=== PATIENT | female | born 1945 | race Caucasian/White ===

== ENCOUNTER → 2017-08-06 11:54 | Outpatient (CLI) | payer MEDICARE, OTHER, SELFPAY ==
[2017-08-08 18:13] LABS: Fecal Immunochemical Test NOT DETECTED
== END ==
PROVIDERS: Family Provider Physician Assistant; PCP Physician Assistant; Visit Provider Physician Assistant
DX: Z12.11 Encounter for screening for malignant neoplasm of colon (principal)
CPT/HCPCS: 82274

== ENCOUNTER → 2019-01-26 19:04 | Outpatient (ROUT) | payer MEDICARE, OTHER, SELFPAY ==
[2019-01-29 16:00] LABS: Fecal Immunochemical Test NOT DETECTED (NOT DETECTED)
== END ==
PROVIDERS: Family Provider Physician Assistant; PCP Physician Assistant; Visit Provider Physician Assistant
DX: Z12.11 Encounter for screening for malignant neoplasm of colon (principal)
CPT/HCPCS: 82274

== ENCOUNTER 2019-05-11 15:31 | Emergency (ER) | payer MEDICARE, OTHER, SELFPAY ==
[2019-05-11 15:54] VITALS: BP 187/77; PULSE 60; RESP 18; TEMP 36.1; O2SAT 100; BMI 29.9
[2019-05-11 16:24] LABS: Add Manual Diff / Slide Review NO; Basophils Absolute Auto 0 /uL (0-100); Basophils Percent Auto 0.3 % (0-2); Eosinophils Absolute Auto 200 /uL (0-450); Eosinophils Percent Auto 1.9 % (2-4); Hematocrit 36.5 % (36-46); Hemoglobin 12.6 g/dL (12.0-16.0); Lymphocytes Absolute Auto 1600 /uL (1100-4500); Lymphocytes Percent Auto 18.1 % (25-40); Mean Corpuscular HGB Conc 34.7 % (30-36); Mean Corpuscular Hemoglobin 33.8 PG (26-34); Mean Corpuscular Volume 97.4 fL (80-100); Monocytes Absolute Auto 800 /uL (0-900); Monocytes Percent Auto 8.7 % (3-14); Neutrophils Absolute Auto 6500 /uL (1500-7000); Platelet Count 240 X10^3/uL (150-400); Red Blood Cell Count 3.74 X10^6/uL (4.0-5.2); Red Cell Distribution Width 13.5 % (11.6-14.8); White Blood Cell Count 9.1 X10^3/uL (4.5-11.0)
[2019-05-11 16:34] LABS: INR 0.9 (0.9-1.3); Prothrombin Time 10.5 SECONDS (10.1-12.7)
[2019-05-11 16:35] LABS: Alanine Aminotransferase 14 IU/L (<35); Albumin 3.9 g/dL (3.5-5.0); Albumin Globulin Ratio 1.3 (1.0-2.8); Alkaline Phosphatase 58 U/L (38-126); Aspartate Aminotransferase 25 IU/L (14-36); BUN Creatinine Ratio 15.6 (6-22); Bilirubin Total 0.5 mg/dL (0.2-1.3); Blood Urea Nitrogen 14 mg/dL (7-17); Calcium 8.7 mg/dL (8.4-10.2); Carbon Dioxide 30 mmol/L (22-32); Chloride 100 mmol/L (98-107); Estimated Glomerular Filt Rate > 60.0 mL/min (>60); Globulin 3.1 g/dL (1.7-4.1); Glucose 96 mg/dL (80-110); HEMOLYSIS < 15 (0-50); Potassium 3.1 mmol/L (3.4-5.1); Sodium 135 mmol/L (137-145)
[2019-05-11 16:36] LABS: PTT Partial Thromboplastin Tim 33 SECONDS (26.4-36.2)
[2019-05-11 16:38] LABS: D Dimer < 200 ng/mL (<230)
--- NOTE | 2019-05-11 17:10 | ED.LOWEXIN ---
HPI - Extremity Injury (Lower) General Chief Complaint: Extremity Injury, Lower Stated Complaint: Right Leg Swollen and Painful, Possible DVT Time Seen by Provider: 05/11/19 17:10 Source: patient Mode of arrival: Ambulatory Limitations: no limitations History of Present Illness HPI Narrative: 74-year-old female here for evaluation of right knee pain and swelling. She has had swelling in the left lower extremity in the past. She is on Lasix. No trauma. No fevers. No redness. Was concerned about a blood clot. Went to the walk-in clinic and sent to the emergency department for evaluation. Has never had a blood clot in the past. No recent trauma. No long periods of immobilization. No chest pain. No shortness of breath. Related Data Home Medications Medication Instructions Recorded Confirmed gabapentin 100 mg capsule See Rx Instructions PO BEDTIME PRN 03/25/18 12/16/18 cap loperamide 2 mg tablet 4 mg PO .QDAY-BID PRN tab 03/25/18 12/16/18 amlodipine-benazepril 1 cap PO DAILY 05/11/19 05/11/19 trazodone 50 mg PO BEDTIME 05/11/19 05/11/19 Previous Rx's Medication Instructions Recorded tramadol 50 - 100 mg PO Q8HP PRN #60 tab 04/25/17 fenofibrate micronized 134 mg 134 mg PO QDAY #90 cap 08/22/17 capsule varicella-zoster gE-AS01B (PF) 50 50 mcg IM ONCE #1 each 03/25/18 mcg/0.5 mL IM susp, kit fluoxetine 20 mg capsule 60 mg PO DAILY #270 cap 05/15/18 furosemide 20 mg tablet 20 mg PO .QDAY-BID PRN #180 tab 06/10/18 estradiol 2 mg tablet 1 mg PO DAILY #45 tab 01/29/19 potassium chloride 10 mEq 10 meq PO DAILY #90 tab 05/05/19 tablet,extended release(part/cryst) Allergies Allergy/AdvReac Type Severity Reaction Status Date / Time codeine [CODEINE] Allergy Severe Rash Verified 05/11/19 16:05 acetaminophen [ACETAMINOPHEN] AdvReac Severe (VICODIN) Unverified 12/16/18 15:07 HEADACHE AND VOMITING hydrocodone [HYDROCODONE] AdvReac Severe (VICODIN) Verified 05/11/19 16:05 HEADACHE AND VOMITING Review of Systems Constitutional Constitutional: Denies fever(s) and Denies headache(s) ENT Ears, Nose, Mouth, and Throat: Denies headache(s) Cardiovascular Cardiovascular: Denies chest pain and Denies dyspnea Respiratory Respiratory: Denies dyspnea Gastrointestinal Gastrointestinal: Denies abdominal pain and Denies nausea Musculoskeletal Musculoskeletal: Reports arthralgias (Right knee) Integumentary/Breasts Skin/Breast: Denies lesions and Denies rash Neurologic Neurologic: Denies headache(s) Hematologic/Lymphatic Hematologic/Lymphatic: Denies easy bleeding Patient History Medical History Arthritis of both hands (Inactive 08/23/15) Essential hypertension (Inactive 11/02/11) Mixed hyperlipidemia (Inactive 11/02/11) Peripheral edema (Inactive 11/02/11) Stage 3 chronic kidney disease (Resolved) Surgical History (Updated 08/06/17 @ 05:46 by Kassandra Ramos PA-C) History of carpal tunnel repair S/P total abdominal hysterectomy and bilateral salpingo-oophorectomy Status post appendectomy Status post breast reduction Status post cholecystectomy Status post laminectomy Family History (Updated 02/03/15 @ 00:00 by Kassandra Ramos PA-C) Father Essential hypertension Sister Fibromyalgia Social History Smoking Status: Never smoker second hand exposure: Yes (I was as a child - both of my parents smoked.) alcohol intake: current (1 glass of gin & tonic or wine every evening. ) substance use type: does not use Smoking Status: Never smoker Alcohol type: beer, wine and hard liquor Substance Use Type: does not use Exam Initial Vital Signs Initial Vital Signs: Vital Signs Temperature 97.0 F L 05/11/19 15:54 Pulse Rate 60 05/11/19 15:54 Respiratory Rate 18 05/11/19 15:54 Blood Pressure 187/77 H 05/11/19 15:54 Pulse Oximetry 100 05/11/19 15:54 Const General: cooperative, comfortable and well developed Limitations: mental status not altered HENMT Head: normal to inspection and normocephalic Resp Effort & Inspection: normal respiratory effort Cardio Pulses: dorsalis pedis present on the right Skin Lesions: no lesions Neuro General: alert and awake Cognition: normal cognition Speech: speech normal Extrem General: normal to inspection and capillary refill normal Other: Patient with mild swelling to the right knee to just proximal need to just distal. No tenderness posteriorly. No tenderness of the calf. Right ankle unremarkable. Course Orders Ordered: ED Orders 05/11/19 16:14 CMP [Comprehensive Metabolic Panel] Stat Complete Blood Count AUTO DIFF Stat DD [D Dimer] Stat PTT [Partial Thromboplastin Time] Stat Prothrombin Time INR Stat Vital Signs Vital signs: Vital Signs - 8 hr 05/11/19 15:54 05/11/19 18:08 Temperature 97.0 F L Pulse Rate 60 78 Respiratory Rate 18 16 Blood Pressure 187/77 H Pulse Oximetry 100 98 MDM - Extremity Injury (Lower) Lab Data Attestation: I reviewed the patient's lab results. Result diagrams: 05/11/19 16:14 05/11/19 16:14 Labs: Lab Results 05/11/19 05/11/19 05/11/19 Range/Units 16:14 16:14 16:14 WBC 9.1 (4.5-11.0) X10^3/uL RBC 3.74 L (4.0-5.2) X10^6/uL Hgb 12.6 (12.0-16.0) g/dL Hct 36.5 (36-46) % MCV 97.4 (80-100) fL MCH 33.8 (26-34) PG MCHC 34.7 (30-36) % RDW 13.5 (11.6-14.8) % Plt Count 240 (150-400) X10^3/uL Neut % (Auto) 71.0 (50-75) % Lymph % (Auto) 18.1 L (25-40) % [place] % (Auto) 8.7 (3-14) % Eos % (Auto) 1.9 L (2-4) % Baso % (Auto) 0.3 (0-2) % Neut # (Auto) 6500 (4290-6779) /uL Lymph # (Auto) 1600 (4262-9188) /uL [place] # (Auto) 800 (0-900) /uL Eos # (Auto) 200 (0-450) /uL Baso # (Auto) 0 (0-100) /uL PT 10.5 (10.1-12.7) SECONDS INR 0.9 (0.9-1.3) APTT 33 (26.4-36.2) SECONDS D-Dimer < 200 (<230) ng/mL Sodium 135 L (137-145) mmol/L Potassium 3.1 L (3.4-5.1) mmol/L Chloride 100 (98-107) mmol/L Carbon Dioxide 30 (22-32) mmol/L BUN 14 (7-17) mg/dL Creatinine 0.90 (0.52-1.04) mg/dL Estimated GFR > 60.0 (>60) mL/min BUN/Creatinine Ratio 15.6 (6-22) Glucose 96 (80-110) mg/dL Calcium 8.7 (8.4-10.2) mg/dL Total Bilirubin 0.5 (0.2-1.3) mg/dL AST 25 (14-36) IU/L ALT 14 (<35) IU/L Alkaline Phosphatase 58 (38-126) U/L Total Protein 7.0 (6.3-8.2) g/dL Albumin 3.9 (3.5-5.0) g/dL Globulin 3.1 (1.7-4.1) g/dL Albumin/Globulin Ratio 1.3 (1.0-2.8) MDM Narrative Medical decision making narrative: Patient's history and physical was not consistent with a DVT. Her D-dimer is negative. I feel that we can hold on x-rays. I do suspect that her symptoms are most likely related to a intra-articular issue either a flare in her arthritis verses a soft tissue injury. She will increase her Lasix. We discussed return precautions and follow-up instructions. Patient expressed understanding agreement plan. Discharge Plan Departure Patient Disposition: Home Clinical Impression: Pain and swelling of right knee Discharge Date/Time: 05/11/19 18:11 Instructions: DI for Knee Effusion Activity Restrictions/Additional Instructions: Recommend that for the next couple days you increase your Lasix and also your potassium like we discussed. You can also ice your knee. Contact your primary provider for follow-up. Continue the rest your medications as directed. Return to the emergency department for any new or worsening symptoms Prescriptions: No Action gabapentin 100 mg capsule See Rx Instructions PO BEDTIME PRNRF: 0 loperamide [Imodium A-D] 2 mg tablet 4 mg PO .QDAY-BID PRNRF: 0 varicella-zoster gE-AS01B (PF) [Shingrix (PF)] 50 mcg/0.5 mL suspension for reconstitution 50 mcg IM ONCE Qty: 1 RF: 1 tramadol 50 MG tablet 50 - 100 mg PO Q8HP PRNQty: 60 RF: 1 fenofibrate micronized 134 mg capsule 134 mg PO QDAY Qty: 90 RF: 1 fluoxetine 20 mg capsule 60 mg PO DAILY Qty: 270 RF: 3 furosemide 20 mg tablet 20 mg PO .QDAY-BID PRN (Reason: edema) Qty: 180 RF: 1 estradiol 2 mg tablet 1 mg PO DAILY Qty: 45 RF: 4 potassium chloride [Klor-Con M10] 10 mEq tablet,ER particles/crystals 10 meq PO DAILY Qty: 90 RF: 0 trazodone 50 mg tablet 50 mg PO BEDTIME RF: 0 amlodipine-benazepril 5-10 mg capsule 1 cap PO DAILY RF: 0 Referrals: Kassandra Ramos PA-C [Primary Care Provider] -
[2019-05-11 18:08] VITALS: PULSE 78; RESP 16; O2SAT 98
== END 2019-05-11 18:11 | disposition home or self-care (01) ==
PROVIDERS: Emergency Provider Emergency Medicine; Family Provider Physician Assistant; PCP Physician Assistant
DX: M25.561 Pain in right knee (principal)
CPT/HCPCS: 36415; 80053; 85025; 85379; 85610; 85730; 99283

== ENCOUNTER → 2019-05-15 09:38 | Outpatient (CLI) | payer MEDICARE, OTHER, SELFPAY ==
[2019-05-15 10:25] LABS: BUN Creatinine Ratio 16.7 (6-22); Blood Urea Nitrogen 15 mg/dL (7-17); Calcium 8.7 mg/dL (8.4-10.2); Carbon Dioxide 28 mmol/L (22-32); Chloride 102 mmol/L (98-107); Estimated Glomerular Filt Rate > 60.0 mL/min (>60); Glucose 97 mg/dL (80-110); HEMOLYSIS 17 (0-50); Potassium 3.7 mmol/L (3.4-5.1); Sodium 139 mmol/L (137-145)
== END ==
PROVIDERS: Family Provider Physician Assistant; PCP Physician Assistant; Referring Provider Internal Medicine; Visit Provider Internal Medicine
DX: I10 Essential (primary) hypertension (principal); R60.9 Edema, unspecified
CPT/HCPCS: 36415; 80048

== ENCOUNTER → 2019-05-20 14:59 | Outpatient (CLI) | payer MEDICARE, OTHER, SELFPAY ==
[2019-05-20 15:45] LABS: Add Manual Diff / Slide Review NO; Basophils Absolute Auto 0 /uL (0-100); Basophils Percent Auto 0.3 % (0-2); Eosinophils Absolute Auto 100 /uL (0-450); Eosinophils Percent Auto 1.6 % (2-4); Hematocrit 37.7 % (36-46); Hemoglobin 12.7 g/dL (12.0-16.0); Lymphocytes Absolute Auto 2000 /uL (1100-4500); Lymphocytes Percent Auto 22.4 % (25-40); Mean Corpuscular HGB Conc 33.8 % (30-36); Mean Corpuscular Hemoglobin 33.5 PG (26-34); Mean Corpuscular Volume 99.2 fL (80-100); Monocytes Absolute Auto 700 /uL (0-900); Monocytes Percent Auto 7.8 % (3-14); Neutrophils Absolute Auto 6100 /uL (1500-7000); Neutrophils Percent Auto 67.9 % (50-75); Platelet Count 287 X10^3/uL (150-400); Red Cell Distribution Width 13.5 % (11.6-14.8); White Blood Cell Count 8.9 X10^3/uL (4.5-11.0)
[2019-05-20 16:14] LABS: C-Reactive Protein Quant 1.3 mg/dL (<1.0); Uric Acid 5.1 mg/dL (2.5-6.2)
[2019-05-20 16:15] LABS: Erythrocyte Sedimentation Rate 12 MM/HR (0-20); Rheumatoid Factor < 8.6 IU/mL (<12.0)
[2019-05-24 07:52] LABS: ANA Screen, IFA NEGATIVE (NEGATIVE)
== END ==
PROVIDERS: Family Provider Physician Assistant; PCP Physician Assistant; Referring Provider Orthopaedic Surgery; Visit Provider Orthopaedic Surgery
DX: M25.561 Pain in right knee (principal)
CPT/HCPCS: 36415; 84550; 85025; 85651; 86038; 86140; 86430

== ENCOUNTER → 2019-06-11 13:48 | Outpatient (CLI) | payer MEDICARE, OTHER, SELFPAY ==
--- NOTE | 2019-06-11 | DI.MRI.S_ITS ---
PROCEDURE: MR KNEE RT WO CON INDICATIONS: Unilateral primary osteoarthritis, right knee TECHNIQUE: Noncontrast sagittal PD fast spin echo and T2 fast spin echo with fat saturation, sagittal 3-D FLASH with fat saturation; coronal T1 spin echo and PD fast spin echo with fat saturation, and axial PD fast spin echo with fat saturation through the knee. COMPARISON: None. FINDINGS: Image quality: Excellent. Menisci: Complex tear of the medial meniscus involving the body and posterior horn with radial component seen at the free margin of the posterior horn image 22/8. There is slight partial extrusion and undersurface signal abnormality involving the body. Mild truncation of the free margin of the body of the lateral meniscus. There is also 6 mm cystic-appearing focus adjacent to the anterior horn of the lateral meniscus, which is probably periligamentous cyst formation near the insertion of the ACL. Especially since no anterior horn lateral meniscal tear identified Cruciate ligaments: Anterior cruciate ligament appears intact, although possibly slightly thickened with T2 hyperintense appearance raising possibility of early mucoid degeneration, versus low grade sprain. Posterior cruciate ligament appears intact. Medial structures: There is medial bowing of the medial collateral ligament, with mild internal signal changes and no complete rupture. There is adjacent soft tissue edema. The appearance could reflect reactive changes to medial compartment pathology, versus low-grade sprain of the MCL. Pes anserinus tendons appear grossly unremarkable. Semimembranosus tendon appears intact. Lateral structures: The lateral collateral ligament intact. Biceps femoris tendon appears intact. Popliteus tendon grossly unremarkable. Iliotibial band appears intact. Anterior structures: Quadriceps tendon intact. Medial and lateral patellofemoral ligaments intact. Patellar tendon appears intact. However there is marked anterior subcutaneous edema Hoffa's fat pad unremarkable. Bones and cartilage: No focal marrow contusion or discrete low signal fracture line. Within the medial compartment, no definite focal articular cartilage defect Within the lateral compartment, no focal articular cartilage defect Within the patellofemoral compartment, mild diffuse surface fraying of the patellar and femoral trochlear cartilage. There is minimal subchondral marrow edema in the medial patellar facet Joint space: Mild to moderate joint effusion. Yadav's cyst which measures approximately 5 cm in the cephalocaudad dimension.. No specific evidence of intra-articular loose body. IMPRESSION: Medial meniscal tear involving the body and posterior horn with slight partial extrusion as detailed above. Mild truncation of the free margin of the body lateral meniscus. ACL demonstrates mild thickening with T2 hyperintense signal changes raising the possibility of early mucoid degeneration versus age-indeterminate low-grade sprain. Probable associated periligamentous ganglion cyst adjacent to the anterior horn of the lateral meniscus. Mild/moderate joint effusion Yadav's cyst Mild patellofemoral chondromalacia Marked prepatellar and superficial infrapatellar subcutaneous edema/fluid. Dictated by: Roberto Tom M.D. on 06/11/2019 at 15:54 Approved by: Roberto Tom M.D. on 06/11/2019 at 16:04
== END ==
PROVIDERS: Family Provider Physician Assistant; PCP Physician Assistant; Referring Provider Orthopaedic Surgery; Visit Provider Orthopaedic Surgery
DX: M17.11 Unilateral primary osteoarthritis, right knee (principal); S83.231A Complex tear of medial meniscus, current injury, right knee, initial encounter; M22.41 Chondromalacia patellae, right knee; M25.461 Effusion, right knee; M71.21 Synovial cyst of popliteal space [Baker], right knee
CPT/HCPCS: 73721

== ENCOUNTER → 2020-06-08 10:51 | Outpatient (CLI) | payer MEDICARE, OTHER, SELFPAY ==
--- NOTE | 2020-06-08 | DI.MRI.S_ITS ---
PROCEDURE: MR SHOULDER RT WO CON INDICATIONS: Pain in right shoulder TECHNIQUE: Noncontrast oblique coronal T2 fast spin echo with fat saturation, oblique sagittal T1 spin echo and T2 fast spin echo with fat saturation, axial T1 spin echo and T2 fast spin echo with fat saturation through the shoulder. COMPARISON: [facility] [place], CR, XR SHOULDER 2+ VIEWS RIGHT, 05/25/2020, 14:26. FINDINGS: Image quality: Excellent. Rotator cuff: There is high-grade intrasubstance articular surface tearing of the/anterior supraspinatus tendon at the humeral insertion site, extending to the musculotendinous junction, measuring roughly 15 mm anteroposterior. Low-grade partial-thickness intrasubstance tearing of the posterior infraspinatus tendon the humeral insertion site extending to the musculotendinous junction. Infraspinatus and teres minor tendons are intact. There are two adjacent low-grade partial-thickness intrasubstance tears of the upper subscapularis tendon at the humeral insertion site extending to the musculotendinous junction. No rotator cuff atrophy. Bones and bursae: No bone marrow contusions or fractures. Moderate acromioclavicular joint degeneration. The acromion demonstrates conventional anatomy, without an os acromiale. A small amount subacromial-subdeltoid or subcoracoid bursal fluid is present. Capsule and soft tissues: In the absence of intra-articular contrast, the labrum and glenohumeral ligaments appear intact. The long head of the biceps tendon demonstrates normal location and morphology. The rotator interval appears normal, without fibrosis. The coracohumeral ligament is normal in thickness. IMPRESSION: 1. High-grade and low-grade tearing of the supraspinatus tendon as described above. 2. Low-grade tearing of the upper subscapularis tendon. 3. No full-thickness tear rotator cuff tear nor rotator cuff atrophy. 4. Acromioclavicular joint osteoarthritis. 5. Subacromial bursitis. Dictated by: Kiana Engle M.D. on 06/08/2020 at 11:28 Approved by: Kiana Engle M.D. on 06/08/2020 at 11:31
== END ==
PROVIDERS: Family Provider Physician Assistant; PCP Physician Assistant; Referring Provider Orthopaedic Surgery Foot and Ankle Surgery; Visit Provider Orthopaedic Surgery Foot and Ankle Surgery
DX: M25.511 Pain in right shoulder (principal); M75.121 Complete rotator cuff tear or rupture of right shoulder, not specified as traumatic; M19.011 Primary osteoarthritis, right shoulder; M75.51 Bursitis of right shoulder
CPT/HCPCS: 73221

== ENCOUNTER 2022-11-22 11:31 | Emergency (ER) | payer MEDICARE, OTHER, SELFPAY ==
[2022-11-22 11:36] VITALS: BP 164/74; PULSE 73; RESP 15; TEMP 36.3; O2SAT 100; BMI 28.3
--- NOTE | 2022-11-22 12:03 | ED_ITS ---
HPI - Dizziness General Chief Complaint: Syncope Stated Complaint: fall, left side of body brused, dizzy Time Seen by Provider: 11/22/22 12:00 Source: patient Mode of arrival: Wheelchair Limitations: no limitations History of Present Illness HPI Narrative: 77-year-old female with history of hypertension, dyslipidemia on Lasix and potassium supplementation, patient states last night around 11:00 p.m. she was walking hit a wet spot on her floor and fell striking her right arm, shoulder and hip. She states they are all very swollen and bruised. She has been able to ambulate on her right lower extremity but states it has been painful and radiating down words. No numbness or tingling. Patient states does hurt to move. She states she got up in the middle of the night to go to the bathroom when when she got up off the toilet she states she walked to the sink and passed out. She recalls feeling very dizzy and continues to feel very dizzy. She struck her chin she believes on the counter top. She has bruising of her chin. Denies any anticoagulants. She is not had any more syncopal episodes or passing out. She is continued to feel lightheaded she states it is not vertigo or room spinning. She is got a little sweaty at times. No chest pain no shortness of breath. Denies neck pain denies back pain. Denies abdominal back or flank pain. No diarrhea constipation. No bowel or bladder incontinence. No dysuria urgency or frequency. Patient states she took some Excedrin at home for her hip which was helpful. She takes medications for blood pressure, cholesterol and diuretic, no anticoagulants including aspirin, Plavix or other thinners. She is had prior total hysterectomy, cholecystectomy, prior ankle fracture for dry mouth, bilateral shoulder repair and right elbow surgery as well as back surgery x2. States allergic to codeine she gets a rash, also has some antibiotic allergies but does not recall which. No tobacco, drinks 2 or 3 alcoholic drinks nightly, she did have 2 or 3 glasses last night. No recreational drugs or illicit. Her primary care is Kathy Pineda. Related Data Home Medications Medication Instructions Recorded Confirmed loperamide 2 mg tablet (Imodium See Rx Instructions PO DAILY 05/15/19 05/01/22 A-D) fluoxetine 20 mg capsule 40 mg PO DAILY 05/01/22 furosemide 20 mg tablet 20 mg PO DAILY PRN edema 05/01/22 potassium chloride 10 mEq 10 meq PO DAILY 05/01/22 tablet,extended release(part/cryst) (Klor-Con M) rosuvastatin 20 mg tablet 20 mg PO DAILY 05/01/22 05/01/22 Previous Rx's Medication Instructions Recorded estradiol 2 mg tablet 1 mg PO DAILY #45 tabs 01/29/19 amlodipine 5 mg-benazepril 10 mg 1 cap PO DAILY #90 caps 07/10/19 capsule trazodone 50 mg tablet 50 mg PO BEDTIME #90 tabs 07/31/19 Allergies Allergy/AdvReac Type Severity Reaction Status Date / Time codeine [CODEINE] Allergy Severe Rash Verified 11/22/22 11:36 hydrocodone [HYDROCODONE] AdvReac Severe (VICODIN) Verified 11/22/22 11:36 HEADACHE AND VOMITING Review of Systems Review of Systems ROS Unobtainable: All systems reviewed & are unremarkable except as noted in HPI and below Patient History Medical History Arthritis of both hands (08/23/15) Chicken pox Essential hypertension (11/02/11) Fractures (~2010) Measles Mixed hyperlipidemia (11/02/11) Peripheral edema (11/02/11) Post menopausal syndrome Surgical History Anesthesia History of ankle surgery (~2011) History of carpal tunnel repair S/P total abdominal hysterectomy and bilateral salpingo-oophorectomy (~1966) Status post appendectomy Status post breast reduction (~1999) Status post cholecystectomy Status post laminectomy Status post rotator cuff repair (~1990) Family History Father Essential hypertension Sister Fibromyalgia Mother History of heart disease Social History Smoking Status: Never smoker second hand exposure: Yes (I was as a child - both of my parents smoked.) alcohol intake: current substance use type: does not use Smoking Status: Never smoker alcohol intake frequency: holidays/special occasions only Alcohol type: beer, wine and hard liquor Substance Use Type: does not use Exam Narrative Exam Narrative: GEN: Patient appears in mild distress. HEAD: No evidence of trauma except for bruising in the underside of the chin, no raccoon/Townsend sign. NECK: Nontender, painless range of motion, trachea midline Negative for Nexus criteria, mild midline line tenderness, distracting injury, altered mental status, neuro deficit, recent EtOH. EYES: PERRLA, EOMI ENT: External inspection normal, trachea is midline, TM's are normal no hemotypanum, Nares are clear, no septal hematoma, no dental or oral injury, airway is normal and with normal occlusion, No bony tenderness RESP: Chest is nontender and has symmetric movement, no ecchymosis, breath sounds are normal no crackles, wheezes or rales CVS: Heart sounds are normal, no murmur noted, No JVD. ABG/GI: Nontender, soft, normal bowel sounds, no distention, no organomegaly, pe lvic rock is negative NEURO: Oriented AOx3, neuro is grossly intact, sensation and motor is normal all 4 extremities moving, cranial nerves II through XII are intact, GCS is 15 PSYCH: Normal mood and affect SKIN: Intact, patient has significant ecchymosis just distal to the right elbow 6 x 3 cm. It is not over the elbow itself. Patient has good range of motion with no distinct bony tenderness on examination. No bony tenderness of the right shoulder. Patient can move throughout range of motion. Warm and dry, no crepitus and without decubitus BACK: No CVA tenderness, no vertebral tenderness, no step-off's, no crepitus EXT: Left hip is nontender, right hip is quite tender to palpation over the greater trochanter. She can lift her leg normally otherwise. No pedal edema, normal color and temperature, normal range of motion of extremities with normal tendon exam, 2+ pulses in all four extremities. Initial Vital Signs Initial Vital Signs: Vital Signs Temperature 97.4 F L 11/22/22 11:36 Pulse Rate 73 11/22/22 11:36 Respiratory Rate 15 11/22/22 11:36 Blood Pressure 164/74 H 11/22/22 11:36 Pulse Oximetry 100 11/22/22 11:36 Oxygen Delivery Method Room Air 11/22/22 11:36 Scores GCS Aram coma scale eye opening: Spontaneous Aram coma scale verbal response: Orientated Aram coma scale motor response: Obey commands Alma coma scale total score: 15 Nexus Score for C-Spine Focal Neurologic deficit present: No Midline spinal tenderness present: Yes Altered level of conciousness present: No Intoxication present: No Distracting Injury Present: No Nexus Criteria for C-spine: 1 Course Orders Ordered: ED Orders 11/22/22 11:57 BNP [NT-proBNP (BNP-Adult 18+)] Stat CBC Auto Diff [Complete Blood Count AUTO DIFF] Stat CMP [Comprehensive Metabolic Panel] Stat Lipase Stat Troponin & CK Cardiac Panel Stat 11/22/22 12:12 CT cervical spine wo con Stat CT head/brain wo con Stat Chest [XR chest 1V] Stat XR elbow RT min 3V Stat XR hip w pel if done RT 2V Stat Vital Signs Vital signs: Vital Signs - 8 hr 11/22/22 14:11 11/22/22 14:13 Pulse Rate 61 61 Respiratory Rate 16 Blood Pressure 154/70 H 154/70 H Pulse Oximetry 96 96 Oxygen Delivery Method Room Air Room Air MDM - Dizziness Lab Data 11/22/22 11:57 11/22/22 11:57 Labs: Lab Results 11/22/22 11/22/22 11/22/22 Range/Units 11:57 11:57 11:57 WBC 10.3 (4.5-11.0) X10^3/uL RBC 3.64 L (4.0-5.2) X10^6/uL Hgb 12.5 (12.0-16.0) g/dL Hct 35.8 L (36-46) % MCV 98.2 (80-100) fL MCH 34.3 H (26-34) PG MCHC 34.9 (30-36) % RDW 13.2 (11.6-14.8) % Plt Count 237 (150-400) X10^3/uL Neut % (Auto) 77.0 H (50-75) % Lymph % (Auto) 15.2 L (25-40) % Lyon % (Auto) 7.2 (3-14) % Eos % (Auto) 0.2 L (2-4) % Baso % (Auto) 0.4 (0-2) % Neut # (Auto) 8000 H (4166-4732) /uL Lymph # (Auto) 1600 (1761-6542) /uL Lyon # (Auto) 700 (0-900) /uL Eos # (Auto) 0 (0-450) /uL Baso # (Auto) 0 (0-100) /uL Sodium 136 L (137-145) mmol/L Potassium 3.6 (3.4-5.1) mmol/L Chloride 99 (98-107) mmol/L Carbon Dioxide 31 (22-32) mmol/L BUN 21 H (7-17) mg/dL Creatinine 0.88 (0.52-1.04) mg/dL Estimated GFR > 60 (>60) mL/min BUN/Creatinine Ratio 23.9 H (6-22) Glucose 102 (80-110) mg/dL Calcium 8.3 L (8.4-10.2) mg/dL Total Bilirubin 0.6 (0.2-1.3) mg/dL AST 31 (14-36) IU/L ALT 20 (<35) IU/L Alkaline Phosphatase 69 (38-126) U/L Total Creatine Kinase 63 (30-135) U/L Troponin I < 0.012 (0.01-0.034) ng/mL NT-Pro-B Natriuret Pep 137 (<450) pg/mL Total Protein 7.1 (6.3-8.2) g/dL Albumin 4.1 (3.5-5.0) g/dL Globulin 3.0 (1.7-4.1) g/dL Albumin/Globulin Ratio 1.4 (1.0-2.8) Lipase 41 (23-300) U/L Imaging Data CT scan - head: Radiologist's Impression: [place] [address] CT Scan Report Signed Patient: Arcelia Goodman MR#: [id number] : 1945 Acct:[id number] Age/Sex: 77 / F Date of Service: 11/22/22 Loc: ED Accession Number: [id number] ?? Procedure: CT head/brain wo con Ordering Provider: Chapis Rivera D.O. PROCEDURE:? CT HEAD/BRAIN WO CON ? INDICATIONS:? fall, right hip/elvow, syncope ? TECHNIQUE:? Noncontrast 4.5 mm thick angled axial sections acquired from the foramen magnum to the vertex, with coronal and sagittal reformats.? For radiation dose reduction, the following was used:? automated exposure control, adjustment of mA and/or kV according to patient size.? ? COMPARISON:? None. ? FINDINGS:? Image quality:? Excellent.? ? CSF spaces:? Basal cisterns are patent.? No extra-axial fluid collections.? The ventricles are symmetric in size and shape.? ? Brain:? No intracranial bleeds or masses.? There is cerebral volume loss for age, with resultant ventricular and sulcal prominence.? There are periventricular and deep white matter chronic small vessel ischemic changes.? There is intracranial internal carotid artery atherosclerosis.? ? Skull and face:? Calvarium and visualized facial bones appear intact, without suspicious lesions.? ? Sinuses:? Visualized sinuses and mastoids are clear.? ? IMPRESSION:? No acute intracranial abnormalities. ? ? Dictated by: David Tirado M.D. on 11/22/2022 at 12:42 ? ? Approved by: David Tirado M.D. on 11/22/2022 at 12:43?? CT - cervical spine: Radiologist's Impression: [place] [address] CT Scan Report Signed Patient: Arcelia Goodman MR#: [id number] : 1945 Acct:[id number] Age/Sex: 77 / F Date of Service: 11/22/22 Loc: ED Accession Number: [id number] ?? Procedure: CT cervical spine wo con Ordering Provider: Chapis Rivera D.O. PROCEDURE:? CT CERVICAL SPINE WO CON ? INDICATIONS:? fall, right hip/elvow, syncope ? TECHNIQUE:? Noncontrast 3 mm thick sections acquired from the skull base to the T4 level.? Sagittal and coronal reformats were then constructed.? For radiation dose reduction, the following was used:? automated exposure control, adjustment of mA and/or kV according to patient size.? ? COMPARISON:? [facility], MR, C-SPINE WITHOUT CONTRAST, 12/18/2013, 20:37. ? FINDINGS:? Image quality:? Excellent.? ? Bones:? No fractures or dislocations.? Visualized superior ribs are intact.? Straightening of normal cervical lordosis.? Grade 1 anterolisthesis of C3 on C4 and C7 on T1 which are similar compared to 2014.? Multilevel degenerative changes with severe disc height loss from C4 through C7 with degenerative endplate changes and spurring.? Facet and uncovertebral arthropathy.? ? Soft tissues:? Prevertebral soft tissues are normal in thickness.? No paravertebral hematomas.? No apical pneumothoraces.? Atherosclerotic vascular calcifications. ? ? IMPRESSION:? ? No acute fracture or traumatic listhesis.? Multilevel degenerative changes of the cervical spine. ? ? ? Dictated by: David Tirado M.D. on 11/22/2022 at 12:48 ? ? Approved by: David Tirado M.D. on 11/22/2022 at 12:53?? Chest x-ray: Radiologist's Impression: Close Hip X-Ray (Signed) Herman Smith - 11/22/[address] (Signed) David Tirado - 11/22/22 Elbow X-Ray (Signed) Herman Smith - 11/22/22 Chest X-Ray (Signed) Herman Smith - 11/22/[address] (Signed) David Tirado - 11/22/22 Shoulder MRI (Signed) Kiana Engle - 06/08/20 Knee MRI (Signed) Roberto Tom - 06/11/19 Mammogram Result 01/01/19 DI Result 01/01/19 Launch?[place] [address] XRay Report Signed Patient: Arcelia Goodman MR#: [id number] : 1945 Acct:[id number] Age/Sex: 77 / F Date of Service: 11/22/22 Loc: ED Accession Number: [id number] ?? Procedure: XR chest 1V Ordering Provider: Chapis Rivera D.O. PROCEDURE:? XR CHEST 1V ? INDICATIONS:? fall, right hip/elvow, syncope ? TECHNIQUE:? One view of the chest was acquired.? ? COMPARISON:? [facility], CHEST 2 VIEW, 11/02/2011, 13:05.? [facility], CHEST 2 VIEW, 08/19/2007, 13:08. ? FINDINGS:? ? Surgical changes and devices:? None.? ? Lungs and pleura:? Lungs are clear.? No pleural effusions or pneumothorax.? ? Mediastinum:? Mediastinal contours appear normal.? Heart size is normal.? ? Bones and chest wall:? No suspicious bony lesions.? Overlying soft tissues appear unremarkable.? ? IMPRESSION:? No acute cardiopulmonary process. ? ? ? Dictated by: Herman Smith M.D. on 11/22/2022 at 13:20 ? ? Approved by: Herman Smith M.D. on 11/22/2022 at 13:20?? Extremity x-ray #1: Radiologist's Impression: [address] [address] XRay Report Signed Patient: Arcelia Goodman MR#: [id number] : 1945 Acct:[id number] Age/Sex: 77 / F Date of Service: 11/22/22 Loc: ED Accession Number: [id number] ?? Procedure: XR hip w pel if done RT 2V Ordering Provider: Chapis Rivera D.O. PROCEDURE:? XR HIP W PEL IF DONE RT 2V ? INDICATIONS:? fall, right hip/elbow, syncope ? TECHNIQUE:? AP pelvis with lateral view(s) of the right hip(s).? ? COMPARISON:? None. ? FINDINGS:? ? Bones:? No fractures or dislocations.? Pelvic ring appears intact.? No suspicious bony lesions.? ? Soft tissues:? The visualized bowel gas pattern is normal.? No suspicious soft tissue calcifications.? ? ? IMPRESSION:? No displaced fracture.? If there remains a high clinical concern or the patient cannot bear weight, consider cross-sectional imaging to exclude an occult fracture. ? Dictated by: Herman Smith M.D. on 11/22/2022 at 13:19 ? ? Approved by: Herman Smith M.D. on 11/22/2022 at 13:20? Extremity x-ray #2: Radiologist's Impression: Close Hip X-Ray (Signed) Herman Smith - 11/22/[address] (Signed) David Tirado 11/22/22 Elbow X-Ray (Signed) Herman Smith - 11/22/22 Chest X-Ray (Signed) Herman Smith - 11/22/[address] (Signed) David Tirado - 11/22/22 Shoulder MRI (Signed) Kiana Engle - 06/08/20 Knee MRI (Signed) Roberto Tom - 06/11/19 Mammogram Result 01/01/19 DI Result 01/01/19 Launch?[address] [address] XRay Report Signed Patient: Arcelia Goodman MR#: [id number] : 1945 Acct:[id number] Age/Sex: 77 / F Date of Service: 11/22/22 Loc: ED Accession Number: [id number] ?? Procedure: XR elbow RT min 3V Ordering Provider: Chapis Rivera D.O. PROCEDURE:? XR ELBOW RT MIN 3V ? INDICATIONS:? fall, right hip/elvow, syncope ? TECHNIQUE:? 3 views of the elbow were acquired.? ? COMPARISON:? None. ? FINDINGS:? ? Bones:? No fractures or dislocations.? No suspicious bony lesions.? ? Soft tissues:? No elbow joint effusion.? No suspicious soft tissue calcifications.? ? ? IMPRESSION:? No displaced fracture or significant joint effusion. ? ? Dictated by: Herman Smith M.D. on 11/22/2022 at 13:20 ? ? Approved by: Herman Smith M.D. on 11/22/2022 at 13:21?? ECG Data Attestation: I personally reviewed and interpreted this ECG as follows: Prior ECG tracings: not available for review Interpretation: Sinus rhythm rate of 65 MD 180 QRS of 142 QTC of 490. No acute ST elevation or depression noted. No priors available for comparison. MDM Narrative Medical decision making narrative: 77-year-old female who had a mechanical ground level fall last night has quite a bit of bruising over her elbow but no bony tenderness and has some tenderness of the right hip. She has been ambulating but painfully on it. She did note in the middle of the night woke up to urinate when she got up off the toilet very dizzy and had what sounds like a syncopal spell. She hit her chin and has bruising her chin at this time she is had persistent dizziness. Patient examination overall is benign she has some mild neck pain so head CT and cervical spine were obtained she would recent trauma and then had a syncopal episode. Chest x-ray, elbow and right hip with pelvis. Patient's labs including CBC, CMP, troponin BNP were included. Point of care urine, EKG patient does not have any priors for comparison. She has had dizziness but been ambulating without further syncopal episodes, slightly hypertensive, no tachycardia, 100% on room air with normal respirations. Patient's imaging including head CT, C-spine, chest x-ray, right elbow and hip do not show any fracture, break intracranial bleed or other acute change. Patient's labs overall are reassuring hemoglobin stable at 12.5 white count 10, platelets are 237 leftward shift. Coags are negative D-dimer is negative, sodium is 136 with normal electrolytes BUN 21 so patient maybe dehydrated, troponins negative at 0.012 and a negative BNP. Discussed with patient plan for follow-up, continue to hydrate regularly. Return precautions. Discharge Plan Departure Patient Disposition: Home Clinical Impression: Traumatic hematoma of right forearm, Traumatic ecchymosis of chin, Syncope Instructions: DI for Syncope in Adults (Fainting) Activity Restrictions/Additional Instructions: Please follow-up with your physician for recheck if you are not feeling significantly improved. You can take Tylenol or Excedrin as needed for pain. Please return for recurrent episodes of passing out, severe head or neck pain, back pain, new chest pain or shortness of breath, persistent vomiting, new numbness, tingling or weakness, loss bowel or bladder control, if you are unable to weightbear or walk on the right leg or other new or concerning changes. Prescriptions: No Action loperamide [Imodium A-D] 2 mg tablet See Rx Instructions PO DAILY Rx Instructions: 2 to 4 tablets PO daily; estradiol 2 mg tablet 1 mg PO DAILY Qty: 45 4RF amlodipine-benazepril 5-10 mg capsule 1 cap PO DAILY Qty: 90 0RF trazodone 50 mg tablet 50 mg PO BEDTIME Qty: 90 0RF fluoxetine 20 mg capsule 40 mg PO DAILY furosemide 20 mg tablet 20 mg PO DAILY PRN (Reason: edema) Rx Instructions: Can take 2 during summer for additional swelling potassium chloride [Klor-Con M10] 10 mEq tablet,ER particles/crystals 10 meq PO DAILY Rx Instructions: Takes extra tab if takes 2 furosemide rosuvastatin 20 mg tablet 20 mg PO DAILY Referrals: Weeks,Kathy, DO [Primary Care Provider] - Stand Alone Forms: Patient Portal/API
--- NOTE | 2022-11-22 12:12 | DI.RAD.S_ITS ---
PROCEDURE: XR ELBOW RT MIN 3V INDICATIONS: fall, right hip/elvow, syncope TECHNIQUE: 3 views of the elbow were acquired. COMPARISON: None. FINDINGS: Bones: No fractures or dislocations. No suspicious bony lesions. Soft tissues: No elbow joint effusion. No suspicious soft tissue calcifications. IMPRESSION: No displaced fracture or significant joint effusion. Dictated by: Herman Smith M.D. on 11/22/2022 at 13:20 Approved by: Herman Smith M.D. on 11/22/2022 at 13:21
--- NOTE | 2022-11-22 12:12 | DI.CT.S_ITS ---
PROCEDURE: CT HEAD/BRAIN WO CON INDICATIONS: fall, right hip/elvow, syncope TECHNIQUE: Noncontrast 4.5 mm thick angled axial sections acquired from the foramen magnum to the vertex, with coronal and sagittal reformats. For radiation dose reduction, the following was used: automated exposure control, adjustment of mA and/or kV according to patient size. COMPARISON: None. FINDINGS: Image quality: Excellent. CSF spaces: Basal cisterns are patent. No extra-axial fluid collections. The ventricles are symmetric in size and shape. Brain: No intracranial bleeds or masses. There is cerebral volume loss for age, with resultant ventricular and sulcal prominence. There are periventricular and deep white matter chronic small vessel ischemic changes. There is intracranial internal carotid artery atherosclerosis. Skull and face: Calvarium and visualized facial bones appear intact, without suspicious lesions. Sinuses: Visualized sinuses and mastoids are clear. IMPRESSION: No acute intracranial abnormalities. Dictated by: David Tirado M.D. on 11/22/2022 at 12:42 Approved by: David Tirado M.D. on 11/22/2022 at 12:43
--- NOTE | 2022-11-22 12:12 | DI.CT.S_ITS ---
PROCEDURE: CT CERVICAL SPINE WO CON INDICATIONS: fall, right hip/elvow, syncope TECHNIQUE: Noncontrast 3 mm thick sections acquired from the skull base to the T4 level. Sagittal and coronal reformats were then constructed. For radiation dose reduction, the following was used: automated exposure control, adjustment of mA and/or kV according to patient size. COMPARISON: [facility], , C-SPINE WITHOUT CONTRAST, 12/18/2013, 20:37. FINDINGS: Image quality: Excellent. Bones: No fractures or dislocations. Visualized superior ribs are intact. Straightening of normal cervical lordosis. Grade 1 anterolisthesis of C3 on C4 and C7 on T1 which are similar compared to 2014. Multilevel degenerative changes with severe disc height loss from C4 through C7 with degenerative endplate changes and spurring. Facet and uncovertebral arthropathy. Soft tissues: Prevertebral soft tissues are normal in thickness. No paravertebral hematomas. No apical pneumothoraces. Atherosclerotic vascular calcifications. IMPRESSION: No acute fracture or traumatic listhesis. Multilevel degenerative changes of the cervical spine. Dictated by: David Tirado M.D. on 11/22/2022 at 12:48 Approved by: David Tirado M.D. on 11/22/2022 at 12:53
--- NOTE | 2022-11-22 12:12 | DI.RAD.S_ITS ---
PROCEDURE: XR HIP W PEL IF DONE RT 2V INDICATIONS: fall, right hip/elbow, syncope TECHNIQUE: AP pelvis with lateral view(s) of the right hip(s). COMPARISON: None. FINDINGS: Bones: No fractures or dislocations. Pelvic ring appears intact. No suspicious bony lesions. Soft tissues: The visualized bowel gas pattern is normal. No suspicious soft tissue calcifications. IMPRESSION: No displaced fracture. If there remains a high clinical concern or the patient cannot bear weight, consider cross-sectional imaging to exclude an occult fracture. Dictated by: Herman Smith M.D. on 11/22/2022 at 13:19 Approved by: Herman Smith M.D. on 11/22/2022 at 13:20
--- NOTE | 2022-11-22 12:12 | DI.RAD.S_ITS ---
PROCEDURE: XR CHEST 1V INDICATIONS: fall, right hip/elvow, syncope TECHNIQUE: One view of the chest was acquired. COMPARISON: [facility], , CHEST 2 VIEW, 11/02/2011, 13:05. [facility], , CHEST 2 VIEW, 08/19/2007, 13:08. FINDINGS: Surgical changes and devices: None. Lungs and pleura: Lungs are clear. No pleural effusions or pneumothorax. Mediastinum: Mediastinal contours appear normal. Heart size is normal. Bones and chest wall: No suspicious bony lesions. Overlying soft tissues appear unremarkable. IMPRESSION: No acute cardiopulmonary process. Dictated by: Herman Smith M.D. on 11/22/2022 at 13:20 Approved by: Herman Smith M.D. on 11/22/2022 at 13:20
[2022-11-22 12:18] LABS: Add Manual Diff / Slide Review NO; Basophils Absolute Auto 0 /uL (0-100); Basophils Percent Auto 0.4 % (0-2); Eosinophils Absolute Auto 0 /uL (0-450); Eosinophils Percent Auto 0.2 % (2-4); Hematocrit 35.8 % (36-46); Hemoglobin 12.5 g/dL (12.0-16.0); Lymphocytes Absolute Auto 1600 /uL (1100-4500); Lymphocytes Percent Auto 15.2 % (25-40); Mean Corpuscular HGB Conc 34.9 % (30-36); Mean Corpuscular Hemoglobin 34.3 PG (26-34); Mean Corpuscular Volume 98.2 fL (80-100); Monocytes Absolute Auto 700 /uL (0-900); Monocytes Percent Auto 7.2 % (3-14); Neutrophils Absolute Auto 8000 /uL (1500-7000); Platelet Count 237 X10^3/uL (150-400); Red Blood Cell Count 3.64 X10^6/uL (4.0-5.2); Red Cell Distribution Width 13.2 % (11.6-14.8); White Blood Cell Count 10.3 X10^3/uL (4.5-11.0)
[2022-11-22 12:23] LABS: Alanine Aminotransferase 20 IU/L (<35); Albumin 4.1 g/dL (3.5-5.0); Albumin Globulin Ratio 1.4 (1.0-2.8); Alkaline Phosphatase 69 U/L (38-126); Aspartate Aminotransferase 31 IU/L (14-36); BUN Creatinine Ratio 23.9 (6-22); Bilirubin Total 0.6 mg/dL (0.2-1.3); Blood Urea Nitrogen 21 mg/dL (7-17); Calcium 8.3 mg/dL (8.4-10.2); Carbon Dioxide 31 mmol/L (22-32); Chloride 99 mmol/L (98-107); Creatine Kinase 63 U/L (30-135); Estimated Glomerular Filt Rate > 60 mL/min (>60); Glucose 102 mg/dL (80-110); HEMOLYSIS < 15 (0-50); Lipase 41 U/L (23-300); Potassium 3.6 mmol/L (3.4-5.1); Sodium 136 mmol/L (137-145); Total Protein 7.1 g/dL (6.3-8.2)
[2022-11-22 12:32] LABS: NT-proBNP (BNP-Adult 18+) 137 pg/mL (<450)
[2022-11-22 12:35] LABS: Troponin I < 0.012 ng/mL (0.01-0.034)
[2022-11-22 14:11] VITALS: BP 154/70; PULSE 61; RESP 16; O2SAT 96
[2022-11-22 14:13] VITALS: BP 154/70; PULSE 61; O2SAT 96
== END 2022-11-22 14:13 | disposition home or self-care (01) ==
PROVIDERS: Emergency Provider Emergency Medicine; Family Provider Physician Assistant; PCP Family Medicine
DX: S50.11XA Contusion of right forearm, initial encounter (principal); S00.83XA Contusion of other part of head, initial encounter; M25.551 Pain in right hip; R42 Dizziness and giddiness; R55 Syncope and collapse; W01.0XXA Fall on same level from slipping, tripping and stumbling without subsequent striking against object, initial encounter
CPT/HCPCS: 36415; 70450; 71045; 72125; 73080; 73502; 80053; 82550; 83690; 83880; 84484; 85025; 93005; 99284

== ENCOUNTER → 2023-01-21 14:08 | Outpatient (CLI) | payer MEDICARE, OTHER, SELFPAY ==
--- NOTE | 2023-01-21 14:10 | DI.RAD.S_ITS ---
PROCEDURE: XR CERVICAL SPINE 2V OR 3V INDICATIONS: 1 month neck pain, worsening TECHNIQUE: 3 view(s) of the cervical spine were acquired. COMPARISON: None. FINDINGS: Bones: No fractures or dislocations to the T1 level. The lateral masses of C1 appear intact on the odontoid view. No suspicious bony lesions. There is loss of the expected cervical lordosis. There is grade 1 C7 on T1 anterolisthesis. There is extensive intervertebral disc space narrowing, endplate sclerosis, and osteophytosis. Soft tissues: There is calcification of the anterior longitudinal ligament. 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 Dictated by: Rach Angeles M.D. on 01/21/2023 at 15:25 Approved by: Rach Angeles M.D. on 01/21/2023 at 15:45
== END ==
PROVIDERS: Family Provider Physician Assistant; PCP Family Medicine; Referring Provider Family Medicine; Visit Provider Family Medicine
DX: M54.12 Radiculopathy, cervical region (principal); M62.838 Other muscle spasm; G56.81 Other specified mononeuropathies of right upper limb; M43.13 Spondylolisthesis, cervicothoracic region
CPT/HCPCS: 72040

== ENCOUNTER → 2023-02-08 16:22 | Outpatient (CLI) | payer MEDICARE, OTHER, SELFPAY ==
--- NOTE | 2023-02-08 16:23 | DI.MRI.S_ITS ---
PROCEDURE: MR CERVICAL SPINE WO CON INDICATIONS: chronic cervical neck pain TECHNIQUE: Noncontrast sagittal T1 spin echo and T2 fast spin echo, sagittal STIR, foraminal oblique sagittal T2 fast spin echo, and axial gradient echo or T2 fast spin echo through the cervical spine. COMPARISON: [facility], MR, C-SPINE WITHOUT CONTRAST, 12/18/2013, 20:37. FINDINGS: Image quality: Excellent. Alignment and Curvature: Interval development of anterolisthesis of C2 on C3 measuring 2 mm and of C3 on C4 measuring 3 mm. Interval development of 3 mm of anterolisthesis of C7 on T1. Bone Marrow: Marrow demonstrates normal overall signal. Spinal Cord: Visualized spinal cord has normal size and signal. No cerebellar tonsillar herniation. Paraspinous Soft Tissues: No paravertebral masses. Prevertebral soft tissues are normal in thickness. C2-C3: No canal stenosis. Prominent right facet hypertrophy. [id number] right foraminal narrowing. C3-C4: Development of 3 mm anterolisthesis C3 on C4. Shallow superior posterior disc extrusion. Bilateral facet hypertrophy, quite prominent on the left.. Indentation on the ventral cord. Mild canal stenosis. AP diameter of the central canal measures 9.5 mm. Bilateral uncovertebral joint hypertrophy. Moderate right foraminal narrowing. Severe left foraminal narrowing with left foraminal C4 nerve root impingement. C4-C5: Severe chronic disc height loss. Posterior disc post osteophyte. Bilateral uncovertebral joint hypertrophy. Bilateral facet hypertrophy. Mild canal stenosis. AP diameter of the central canal is 9.9 mm. Severe right foraminal narrowing and moderate to severe left foraminal narrowing with bilateral foraminal C5 nerve root impingement. C5-C6: Chronic disc height loss. Mild diffuse posterior disc post osteophyte. Mild canal stenosis. AP diameter of the central canal is 9.5 mm. Bilateral uncovertebral joint hypertrophy. Bilateral facet hypertrophy. Severe right foraminal narrowing with impingement on the exiting right C6 nerve root. Moderate left foraminal narrowing. C6-C7: Chronic disc height loss. Mild posterior disc post osteophyte. Bilateral uncovertebral joint hypertrophy. Facet hypertrophy. No significant canal stenosis. Moderate right foraminal narrowing. Moderate to severe left foraminal narrowing with a degree of left foraminal C7 nerve root impingement. C7-T1: Anterolisthesis of C7 on T1. No canal stenosis. Bilateral facet hypertrophy. Severe right foraminal narrowing and moderate to severe left foraminal narrowing with bilateral foraminal C8 nerve root impingement. IMPRESSION: 1. Severe generalized cervical spondylitic change with multilevel facet arthropathy, uncovertebral joint hypertrophy, and chronic disc height loss. 2. Canal stenosis is mild at C3-C4, C4-C5, and C5-C6. 3. Multilevel significant foraminal narrowing. Findings include severe left foraminal narrowing at C3-C4, severe right foraminal narrowing and moderate to severe left foraminal narrowing at C4-C5, severe right foraminal narrowing at C5-C6, moderate to severe left foraminal narrowing at C6-C7, and severe right foraminal narrowing plus moderate to severe left foraminal narrowing at C7-T1. Dictated by: Ryan Milton M.D. on 02/11/2023 at 21:06 Approved by: Ryan Milton M.D. on 02/11/2023 at 21:25
== END ==
PROVIDERS: Family Provider Physician Assistant; PCP Family Medicine; Referring Provider Family Medicine; Visit Provider Family Medicine
DX: M47.22 Other spondylosis with radiculopathy, cervical region (principal); M48.02 Spinal stenosis, cervical region; M62.838 Other muscle spasm; G56.81 Other specified mononeuropathies of right upper limb
CPT/HCPCS: 72141

== ENCOUNTER → 2023-05-10 07:39 | Outpatient (CLI) | payer MEDICARE, OTHER, SELFPAY ==
[2023-05-10 09:49] LABS: Alanine Aminotransferase 17 IU/L (<35); Albumin 3.7 g/dL (3.5-5.0); Albumin Globulin Ratio 1.4 (1.0-2.8); Alkaline Phosphatase 56 U/L (38-126); Aspartate Aminotransferase 25 IU/L (14-36); BUN Creatinine Ratio 17.7 (6-22); Bilirubin Total 0.7 mg/dL (0.2-1.3); Blood Urea Nitrogen 22 mg/dL (7-17); Calcium 8.7 mg/dL (8.4-10.2); Carbon Dioxide 32 mmol/L (22-32); Chloride 99 mmol/L (98-107); Cholesterol 170 mg/dL (140-199); Estimated Glomerular Filt Rate 45 mL/min (>60); Globulin 2.6 g/dL (1.7-4.1); Glucose 95 mg/dL (80-110); HEMOLYSIS < 15 (0-50); Potassium 3.8 mmol/L (3.4-5.1); Sodium 137 mmol/L (137-145); Total Protein 6.3 g/dL (6.3-8.2); Triglycerides 100 mg/dL (35-150)
[2023-05-10 09:56] LABS: HDL Cholesterol 138 mg/dL (40-60); LDL Cholesterol Calculated 12 mg/dL (<100)
[2023-05-10 10:04] LABS: Free T3, Triiodothyronine Free 3.25 pg/mL (2.77-5.27); Free T4, Direct Thyroxine 0.63 ng/dL (0.78-2.19)
[2023-05-10 10:17] LABS: Thyroid Stimulating Hormone 7.02 uIU/mL (0.47-4.68)
[2023-05-10 10:29] LABS: Creatinine Urine Random 161.5 mg/dL
[2023-05-10 10:36] LABS: Microalbumin Urine Random < 0.6 mg/dL (0-1.6)
== END ==
PROVIDERS: Family Provider Physician Assistant; PCP Nurse Practitioner; Referring Provider Nurse Practitioner; Visit Provider Nurse Practitioner
DX: I10 Essential (primary) hypertension (principal); E78.2 Mixed hyperlipidemia; F32.89 Other specified depressive episodes; Z79.899 Other long term (current) drug therapy
CPT/HCPCS: 36415; 80053; 80061; 82043; 82570; 84439; 84443; 84481

== ENCOUNTER 2023-05-23 08:34 | Outpatient (CLI) | payer MEDICARE, OTHER, SELFPAY ==
[2023-05-23] VITALS (9 sets, daily range): BP systolic 158–212; BP diastolic 67–83; PULSE 62–69; RESP 9–18; TEMP 36.3; O2SAT 96–100
--- NOTE | 2023-05-23 09:15 | DI.RAD.S_ITS ---
PROCEDURE: PAIN C/T INTERLAMINAR INJECT INDICATIONS: spinal stenosis COMPARISON: None. FINDINGS: Fluoroscopic spot filming was performed to verify placement of spinal needles in the C6-7 region, as labeled on the films. Appropriate location(s) of the needle tip(s) was confirmed by injection of iodinated contrast. IMPRESSION: Limited fluoroscopic spot image demonstrates spinal needle in the C6-7 region. Please see procedure report for details. Dictated by: Wilda Harris M.D. on 05/23/2023 at 13:25 Approved by: Wilda Harris M.D. on 05/23/2023 at 13:27
[2023-05-23] MEDS: MIDAZOLAM 2 MG/2 ML VIAL IV (09:44)
[2023-05-23] MEDS: BUPIVACAINE 0.25% (PF) VIAL 2 ML INJ (09:52)
[2023-05-23] MEDS: DEXAMETHASONE 10 MG/ML VIAL 20 MG INJ (09:52)
[2023-05-23] MEDS: iopamidoL 15 ML VIAL 3 ML INJ (09:53)
--- NOTE | 2023-05-23 09:57 | P.PCN_ITS ---
Date/Time/Diagnoses Date of procedure: 05/23/23 Time of procedure: 09:57 Pre-procedure diagnosis: 1. CERVICAL STENOSIS, 2. CERVICAL HNP WITH UPPER EXTREMITY RADICULAR FEATURES Post-procedure diagnosis: same Procedure Notes Procedure: 1. FLUORSCOPICALLY GUIDED CONTRAST CONTROLLED INTERLAMINAR EPIDURAL STEROID INJECTION - C6/7 TL LENORE Indications: Arcelia is referred by SOPHIA Aranda for treatment of Cervical HNP with Upper Extremity Paresthesias. Physician: Sukhdev Roldan Total Fluoroscopy time (seconds): 20 Total sedation minutes: 10 Complications: none Procedure in detail & Post-procedure care: FINDINGS Cervical Stenosis due to disc deterioration and nerve root irritation and nerve root irritation DESCRIPTION OF PROCEDURE Fluoroscopically guided, contrast-controlled C6/7 translaminar epidural steroid injection with conscious sedation. Following review of allergy and review of potential side effects and complications, including, but not necessarily limited to, infection, allergic reaction, local tissue breakdown, temporary as well as permanent nerve injury, stroke, paralysis, and possible , the patient indicated that patient understood and agreed to proceed. An informed consent document was signed by the patient, witnessed by a nurse, and placed in the patient's chart. Additionally, other treatment options including modalities, medications, and physical therapy were reviewed with the patient. After review of previous anaesthesic history and IV conscious sedation the patient was deemed safe to proceed with today?s procedure with IV conscious sed ation as ASA class II designation. Safety time-out was performed to confirm patient ID, procedure to be performed and site of procedure. IV sedation was accomplished with a combination of 2mg of Versed administered by the RN after DO order, titrated to patient comfort during the course of the procedure while the patient remained responsive to all verbal commands. In the prone position, following sterile prep and drape of the cervical region, the C6/7 translaminar space was identified fluoroscopically. The skin was anesthetized via a 25-gauge 1.5-inch needle with 1% lidocaine solution. At this point, a 25-gauge, 2.5-inch short bevel spinal needle was atraumatically introduced and advanced under fluoroscopic guidance into epidural space at the C6/7 translaminar space. Depth was confirmed on lateral view. Radiological data, including multiple fluoroscopic views of the cervical spine, reveal a spinal needle at the C6/7 translaminar space. Lateral views then show placement of the needle in the epidural space. Subsequent views show contrast material flowing superiorly and inferiorly in the epidural space. DSA fluoroscopy with live contrast injection, once again, confirmed no vascular or intrathecal uptake. At this point, using loss of resistance technique with saline and air, the epidural space was entered. Following negative aspiration, injection of approximately 1.5 cc of Isovue-200 with live fluoroscopy in the AP view confirmed epidural flow in the epidural space without vascular or intrathecal uptake observed. Subsequently, a test dose of 1 cc of 1% lidocaine solution was injected and patient was observed for two minutes without signs or symptoms of complications, including abdominal pain, shortness of breath, bilateral upper or lower extremity weakness, nausea and vomiting, prior to steroid injection. At this point, 2cc or 20mg of dexamethasone was then injected without incident. The patient tolerated the procedure well without signs or symptoms of co mplications prior to being transferred to the recovery area for further monitoring, The patient was then transferred to the recovery area where they were observed for an appropriate period of time after the injection. The patient reported a VAS score of 6 prior to the procedure and a post-procedure VAS of 0. POST OP INSTRUCTIONS The patient was provided a Pain Log to continue to record their response to the target-specific procedure prior to follow-up visit with the referring provider. Additionally, specific post-injection care instructions and a contact number to our office were provided if concerns arise regarding possible complications associated with the procedure are suspected.
== END 2023-05-23 10:15 | disposition home or self-care (01) ==
LOC: RAD 08:35
PROVIDERS: Family Provider Physician Assistant; PCP Nurse Practitioner; Referring Provider Physical Medicine & Rehabilitation; Visit Provider Physical Medicine & Rehabilitation
DX: M48.02 Spinal stenosis, cervical region (principal); M50.123 Cervical disc disorder at C6-C7 level with radiculopathy
CPT/HCPCS: 62321; 99152; J1100; J2250; J3490

== ENCOUNTER 2023-09-03 08:14 | Outpatient (CLI) | payer MEDICARE, OTHER, SELFPAY ==
[2023-09-03] VITALS (8 sets, daily range): BP systolic 140–177; BP diastolic 61–74; PULSE 57–70; RESP 10–18; TEMP 36.8; O2SAT 97–100
--- NOTE | 2023-09-03 09:45 | DI.RAD.S_ITS ---
PROCEDURE: PAIN C/T INTERLAMINAR INJECT INDICATIONS: C6/7 TL LENORE COMPARISON: [facility], , PAIN C/T INTERLAMINAR INJECT, 05/23/2023, 10:45. FINDINGS: Fluoroscopic spot filming was performed to verify placement of spinal needle at the C6-7 level, as labeled on the films. Appropriate location of the needle tip was confirmed by injection of iodinated contrast. IMPRESSION: Intraprocedural examination demonstrates appropriate needle positioning. Approved by: Hesham Berrios M.D. on 09/03/2023 at 15:58
--- NOTE | 2023-09-03 09:48 | PC.NURSE ---
Per patient she took 2 tabs of Excedrin yesterday. 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 Per patient has never been tested for a clotting disorder. Dr Roldan notified
[2023-09-03] MEDS: MIDAZOLAM 2 MG/2 ML VIAL IV (10:05)
[2023-09-03] MEDS: iopamidoL 15 ML VIAL 3 ML INJ (10:10)
[2023-09-03] MEDS: BUPIVACAINE 0.25% (PF) VIAL 2 ML INJ (10:11)
[2023-09-03] MEDS: DEXAMETHASONE 10 MG/ML VIAL 20 MG INJ (10:11)
--- NOTE | 2023-09-03 10:24 | P.PCN_ITS ---
Date/Time/Diagnoses Date of procedure: 09/03/23 Time of procedure: 10:24 Pre-procedure diagnosis: 1. CERVICAL STENOSIS, 2. CERVICAL HNP WITH UPPER EXTREMITY RADICULAR FEATURES Post-procedure diagnosis: same Procedure Notes Procedure: 1. FLUORSCOPICALLY GUIDED CONTRAST CONTROLLED INTERLAMINAR EPIDURAL STEROID INJECTION - C6/7 TL LENORE Indications: Arcelia is referred by SOPHIA Aranda for treatment of Cervical HNP with Upper Extremity Paresthesias. Physician: Sukhdev Roldan Total Fluoroscopy time (seconds): 23 Total sedation minutes: 14 Complications: none Procedure in detail & Post-procedure care: FINDINGS Cervical Stenosis due to disc deterioration and nerve root irritation and nerve root irritation DESCRIPTION OF PROCEDURE Fluoroscopically guided, contrast-controlled C6/7 translaminar epidural steroid injection with conscious sedation. Following review of allergy and review of potential side effects and complications, including, but not necessarily limited to, infection, allergic reaction, local tissue breakdown, temporary as well as permanent nerve injury, stroke, paralysis, and possible , the patient indicated that patient understood and agreed to proceed. An informed consent document was signed by the patient, witnessed by a nurse, and placed in the patient's chart. Additionally, other treatment options including modalities, medications, and physical therapy were reviewed with the patient. After review of previous anaesthesic history and IV conscious sedation the patient was deemed safe to proceed with today?s procedure with IV conscious sed ation as ASA class II designation. Safety time-out was performed to confirm patient ID, procedure to be performed and site of procedure. IV sedation was accomplished with a combination of 2mg of Versed administered by the RN after DO order, titrated to patient comfort during the course of the procedure while the patient remained responsive to all verbal commands. In the prone position, following sterile prep and drape of the cervical region, the C6/7 translaminar space was identified fluoroscopically. The skin was anesthetized via a 25-gauge 1.5-inch needle with 1% lidocaine solution. At this point, a 25-gauge, 2.5-inch short bevel spinal needle was atraumatically introduced and advanced under fluoroscopic guidance into epidural space at the C6/7 translaminar space. Depth was confirmed on lateral view. Radiological data, including multiple fluoroscopic views of the cervical spine, reveal a spinal needle at the C6/7 translaminar space. Lateral views then show placement of the needle in the epidural space. Subsequent views show contrast material flowing superiorly and inferiorly in the epidural space. DSA fluoroscopy with live contrast injection, once again, confirmed no vascular or intrathecal uptake. At this point, using loss of resistance technique with saline and air, the epidural space was entered. Following negative aspiration, injection of approximately 1.5 cc of Isovue-200 with live fluoroscopy in the AP view confirmed epidural flow in the epidural space without vascular or intrathecal uptake observed. Subsequently, a test dose of 1 cc of 1% lidocaine solution was injected and patient was observed for two minutes without signs or symptoms of complications, including abdominal pain, shortness of breath, bilateral upper or lower extremity weakness, nausea and vomiting, prior to steroid injection. At this point, 2cc or 20mg of dexamethasone was then injected without incident. The patient tolerated the procedure well without signs or symptoms of co mplications prior to being transferred to the recovery area for further monitoring, The patient was then transferred to the recovery area where they were observed for an appropriate period of time after the injection. The patient reported a VAS score of 6 prior to the procedure and a post-procedure VAS of 0. POST OP INSTRUCTIONS The patient was provided a Pain Log to continue to record their response to the target-specific procedure prior to follow-up visit with the referring provider. Additionally, specific post-injection care instructions and a contact number to our office were provided if concerns arise regarding possible complications associated with the procedure are suspected.
== END 2023-09-03 10:41 | disposition home or self-care (01) ==
PROVIDERS: Family Provider Physician Assistant; PCP Nurse Practitioner; Referring Provider Physical Medicine & Rehabilitation; Visit Provider Physical Medicine & Rehabilitation
DX: M48.02 Spinal stenosis, cervical region (principal); M50.123 Cervical disc disorder at C6-C7 level with radiculopathy
CPT/HCPCS: 62321; 99152; J1100; J2250; J3490

== ENCOUNTER → 2023-09-05 07:55 | Outpatient (CLI) | payer MEDICARE, OTHER, SELFPAY ==
[2023-09-05 08:57] LABS: Hematocrit 37.7 % (36-46); Hemoglobin 12.9 g/dL (12.0-16.0); Mean Corpuscular HGB Conc 34.1 % (30-36); Mean Corpuscular Hemoglobin 33.6 PG (26-34); Mean Corpuscular Volume 98.4 fL (80-100); Platelet Count 262 X10^3/uL (150-400); Red Blood Cell Count 3.83 X10^6/uL (4.0-5.2); Red Cell Distribution Width 13.6 % (11.6-14.8); White Blood Cell Count 17.3 X10^3/uL (4.5-11.0)
[2023-09-05 09:29] LABS: Alanine Aminotransferase 18 IU/L (<35); Albumin Globulin Ratio 1.7 (1.0-2.8); Alkaline Phosphatase 57 U/L (38-126); Aspartate Aminotransferase 25 IU/L (14-36); Bilirubin Total 0.5 mg/dL (0.2-1.3); Blood Urea Nitrogen 24 mg/dL (7-17); Calcium 8.8 mg/dL (8.4-10.2); Carbon Dioxide 33 mmol/L (22-32); Chloride 100 mmol/L (98-107); Cholesterol 165 mg/dL (140-199); Estimated Glomerular Filt Rate 52 mL/min (>60); Globulin 2.3 g/dL (1.7-4.1); Glucose 99 mg/dL (80-110); HEMOLYSIS < 15 (0-50); Potassium 2.8 mmol/L (3.4-5.1); Sodium 139 mmol/L (137-145); Total Protein 6.3 g/dL (6.3-8.2); Triglycerides 112 mg/dL (35-150)
[2023-09-05 09:42] LABS: Free T3, Triiodothyronine Free 2.78 pg/mL (2.77-5.27); Free T4, Direct Thyroxine 0.66 ng/dL (0.78-2.19)
[2023-09-05 09:49] LABS: Microalbumin Urine Random < 0.6 mg/dL (0-1.6)
[2023-09-05 09:49] LABS: HDL Cholesterol 113 mg/dL (40-60); LDL Cholesterol Calculated 30 mg/dL (<100)
[2023-09-05 09:56] LABS: Thyroid Stimulating Hormone 3.98 uIU/mL (0.47-4.68)
[2023-09-05 15:52] LABS: Hep C Virus Ab w/Reflex Quant NEGATIVE s/c (NEGATIVE)
== END ==
PROVIDERS: Family Provider Physician Assistant; PCP Nurse Practitioner; Referring Provider Nurse Practitioner; Visit Provider Nurse Practitioner
DX: D64.9 Anemia, unspecified (principal); E78.2 Mixed hyperlipidemia; G47.00 Insomnia, unspecified; K58.9 Irritable bowel syndrome, unspecified; I10 Essential (primary) hypertension; F32.9 Major depressive disorder, single episode, unspecified; Z79.899 Other long term (current) drug therapy
CPT/HCPCS: 36415; 80053; 80061; 82043; 82570; 84439; 84443; 84481; 85027; 86803

== ENCOUNTER → 2023-11-21 17:18 | Outpatient (CLI) | payer MEDICARE, OTHER, SELFPAY ==
--- NOTE | 2023-11-21 17:21 | DI.RAD.S_ITS ---
PROCEDURE: XR SHOULDER RT MIN 2V INDICATIONS: right shoulder pain after fall TECHNIQUE: 3 views of the shoulder were acquired. COMPARISON: None. FINDINGS: Bones: No fractures or dislocations. No suspicious bony lesions. Arthritic changes are seen in the AC joint. There is osteophyte along inferior glenoid. Visualized ribs appear intact. Soft tissues: No suspicious soft tissue calcifications. IMPRESSION: Right shoulder osteoarthritis. Dictated by: Nahum Mei M.D. on 11/22/2023 at 14:56 Approved by: Nahum Mei M.D. on 11/22/2023 at 14:58
[2023-11-21 18:16] LABS: Add Manual Diff / Slide Review NO; Basophils Absolute Auto 100 /uL (0-100); Basophils Percent Auto 0.5 % (0-2); Eosinophils Absolute Auto 100 /uL (0-450); Eosinophils Percent Auto 0.5 % (2-4); Hematocrit 34.4 % (36-46); Lymphocytes Absolute Auto 2100 /uL (1100-4500); Lymphocytes Percent Auto 18.7 % (25-40); Mean Corpuscular Hemoglobin 34.2 PG (26-34); Mean Corpuscular Volume 97.7 fL (80-100); Monocytes Absolute Auto 1000 /uL (0-900); Monocytes Percent Auto 8.6 % (3-14); Neutrophils Absolute Auto 8000 /uL (1500-7000); Neutrophils Percent Auto 71.7 % (50-75); Platelet Count 283 X10^3/uL (150-400); Red Blood Cell Count 3.52 X10^6/uL (4.0-5.2); Red Cell Distribution Width 13.3 % (11.6-14.8); White Blood Cell Count 11.2 X10^3/uL (4.5-11.0)
[2023-11-21 20:25] LABS: HEMOLYSIS < 15 (0-50); Iron 84 ug/dL (37-170)
[2023-11-21 20:32] LABS: Cholesterol 138 mg/dL (140-199); HDL Cholesterol 80 mg/dL (40-60); LDL Cholesterol Calculated 19 mg/dL (<100); Magnesium 2.2 mg/dL (1.6-2.3); Triglycerides 194 mg/dL (35-150)
[2023-11-21 20:41] LABS: Transferrin 209 mg/dL (206-381)
[2023-11-21 20:44] LABS: Free T3, Triiodothyronine Free 3.06 pg/mL (2.77-5.27); Free T4, Direct Thyroxine 0.87 ng/dL (0.78-2.19)
[2023-11-21 20:57] LABS: Thyroid Stimulating Hormone 3.39 uIU/mL (0.47-4.68)
[2023-11-23 04:20] LABS: Percent Iron Saturation 33 % (15-50); Total Iron Binding Capacity 258 ug/dL (265-497)
== END ==
LOC: LAB 17:20
PROVIDERS: Family Provider Physician Assistant; PCP Nurse Practitioner; Referring Provider Nurse Practitioner; Visit Provider Nurse Practitioner
DX: I10 Essential (primary) hypertension (principal); W19.XXXA Unspecified fall, initial encounter; F32.89 Other specified depressive episodes; E78.2 Mixed hyperlipidemia; D64.9 Anemia, unspecified; R42 Dizziness and giddiness; M25.511 Pain in right shoulder; M19.011 Primary osteoarthritis, right shoulder
CPT/HCPCS: 36415; 73030; 80061; 83540; 83550; 83735; 84439; 84443; 84481; 85025

== ENCOUNTER → 2023-11-26 16:33 | Outpatient (CLI) | payer MEDICARE, OTHER, SELFPAY ==
--- NOTE | 2023-11-26 16:35 | DI.MRI.S_ITS ---
PROCEDURE: MR SHOULDER RT WO CON INDICATIONS: right shoulder pain s/p fall TECHNIQUE: Noncontrast oblique coronal T2 fast spin echo with fat saturation, oblique sagittal T1 spin echo and T2 fast spin echo with fat saturation, axial T1 spin echo and T2 fast spin echo with fat saturation through the shoulder. COMPARISON: [facility], CR, XR SHOULDER RT MIN 2V, 11/21/2023, 17:26. [facility], MR, MR SHOULDER RT WO CON, 06/08/2020, 11:05. FINDINGS: Image quality: Excellent. Rotator cuff: High-grade tearing of the supraspinatus tendon at the distal insertion measuring approximately 7 mm in anterior-posterior dimension which communicates with the bursal surface. Additional focal communication with the articular surface is not excluded. No significant tendon retraction. Mild infraspinatus tendinosis. Teres minor tendon is intact. There is mild subscapularis tendinosis. Rotator cuff muscles are normal in bulk. Bones and bursae: No acute trabecular bone injury or fracture. Small chronic traction cystic changes are seen at the posterior superior humeral head and the lesser tuberosity near the rotator cuff tendon insertions. Partial-thickness cartilage irregularity is seen in the glenohumeral joint with a small area of subchondral cystic changes at the posterior inferior glenoid as well as marginal spurring in the glenoid rim. Postsurgical changes are seen at the acromioclavicular joint without recurrent narrowing of the supraspinatus outlet. Moderate subacromial/subdeltoid bursal fluid. No significant glenohumeral effusion. Capsule and soft tissues: Mild diffuse labral degeneration. No acute displaced labral tear is seen. Proximal biceps long head tendon demonstrates mild tendinosis. There is partial effacement of the fat signal in the rotator interval. Glenohumeral ligaments are likely within normal limits. IMPRESSION: 1. High-grade partial intrasubstance and bursal sided tearing of the supraspinatus tendon at the anterior insertion measuring 7 mm in anterior-posterior dimension. Focal full-thickness component with perforation of the articular sided fibers is not excluded. 2. Mild infraspinatus and subscapularis tendinosis. Low-grade partial tearing of the distal subscapularis tendon is less prominent when compared to the prior MRI. 3. Mild tendinosis of the proximal biceps long head tendon. 4. [id number] glenohumeral osteoarthrosis. Diffuse labral degeneration. 5. Postsurgical changes at the acromioclavicular joint. No recurrent narrowing of the supraspinatus outlet. 6. Moderate subacromial/subdeltoid bursal effusion or mild bursitis. Approved by: Hesham Berrios M.D. on 11/27/2023 at 12:38
== END ==
LOC: MRI 16:34
PROVIDERS: Family Provider Physician Assistant; PCP Nurse Practitioner; Referring Provider Nurse Practitioner; Visit Provider Nurse Practitioner
DX: M75.111 Incomplete rotator cuff tear or rupture of right shoulder, not specified as traumatic (principal); M19.011 Primary osteoarthritis, right shoulder; M25.511 Pain in right shoulder; G89.11 Acute pain due to trauma
CPT/HCPCS: 73221

== ENCOUNTER 2024-02-04 08:35 | Outpatient (CLI) | payer MEDICARE, OTHER, SELFPAY ==
[2024-02-04] VITALS (9 sets, daily range): BP systolic 112–141; BP diastolic 55–69; PULSE 52–59; RESP 14–19; TEMP 36.6; O2SAT 93–99
--- NOTE | 2024-02-04 09:15 | DI.RAD.S_ITS ---
PROCEDURE: PAIN C/T FACET INJ/BLK 1ST L INDICATIONS: Left C5, C6, C7 MBB LA COMPARISON: None. FINDINGS: Fluoroscopic spot filming was performed to verify placement of spinal needles at the left C5, C6 and C7 level(s), as labeled on the films. Appropriate location(s) of the needle tip(s) was confirmed by injection of iodinated contrast. IMPRESSION: Intra procedural examination demonstrating appropriate positions of the needles. Dictated by: David Tirado M.D. on 02/04/2024 at 11:46 Approved by: David Tirado M.D. on 02/04/2024 at 11:47
[2024-02-04] MEDS: MIDAZOLAM 2 MG/2 ML VIAL IV (09:51)
[2024-02-04] MEDS: iopamidoL 15 ML VIAL 3 ML INJ (09:57)
[2024-02-04] MEDS: LIDOCAINE 1% 20 ML 5 ML INJ (09:58)
[2024-02-04] MEDS: BUPIVACAINE 0.5% (PF) 10 ML VIAL 5 ML INJ (09:58)
--- NOTE | 2024-02-04 10:14 | P.PCN_ITS ---
Date/Time/Diagnoses Date of procedure: 02/04/24 Time of procedure: 10:14 Pre-procedure diagnosis: 1. FACET ARTHROPATHY 2. AXIAL NECK PAIN Post-procedure diagnosis: same Procedure Notes Procedure: 1. FLUOROSCOPICALLY GUIDED, CONTRAST-CONTROLLED LEFT C5, C6 and C7 MBB LA. Indications: Arcelia is referred by USAMA Ramos for treatment of Axial Neck Pain Physician: Sukhdev Roldan Total Fluoroscopy time (seconds): 9 Total sedation minutes: 18 Complications: none Procedure in detail & Post-procedure care: DESCRIPTION OF PROCEDURE Fluoroscopically guided, contrast-controlled left C5, C6 and C7 medial branch blocks LA. Following review of allergy and review of potential side effects and complications, including, but not necessarily limited to, infection, allergic reaction, local tissue breakdown, stroke, temporary or permanent nerve injury and paralysis, the patient indicated that the patient understood and agreed to proceed. An informed consent document was signed by the patient, witnessed by a nurse, and placed in the patient's chart. Additionally, other treatment options including medications, modalities, and physical therapy were reviewed with the patient. After review of previous anaesthesic history and IV conscious sedation the patient was deemed safe to proceed with today?s procedure with IV conscious sedation as ASA class II designation. Safety time-out was performed to confirm patient ID, procedure to be performed and site of procedure. IV sedation was accomplished with a combination of 2mg of Versed was administered by the RN after DO order, titrated to patient comfort during the course of the procedure while the patient remained responsive to all verbal commands In the prone position, following sterile prep and drape of the cervical spine region, the posterior aspect of the left C5, C6 and C7 medial branchs were identified fluoroscopically. The skin was anesthetized via a 25-gauge 1.5-inch needle with 1% lidocaine solution into the corresponding medial branchs. At this point, a 25-gauge 2.5-inch spinal needle was atraumatically introduced and advanced under fluoroscopic guidance into the corresponding locations. Following negative aspiration, injections of approximately 0.1cc of Isovue 200 confirmed placement without vascular uptake. At this point, a total of 0.5cc of 0.5% bupivicaine solution was injected without complication into each of the corresponding medial branches. The procedure tolerated the procedure well without signs or symptoms of complications prior to transfer to the recovery area continued monitoring without incident. The patient was then transferred to the recovery area where they were observed for an appropriate period of time after the injection. The patient reported a VAS score of 7 prior to the procedure and a post- procedure VAS of 0. POST OP INSTRUCTIONS They were provided a Pain Log to continue to record their response to the target-specific procedure prior to their follow-up visit with their referring physician. Additionally, specific post-injection care instructions and a contact number to our office were provided if concerns arise regarding possible complications associated with the procedure are suspected.
--- NOTE | 2024-02-04 10:51 | P.PCN_ITS ---
Date/Time/Diagnoses Date of procedure: 02/04/24 Time of procedure: 10:51 Pre-procedure diagnosis: 1. CERVICAL STENOSIS, 2. CERVICAL HNP WITH UPPER EXTREMITY RADICULAR FEATURES Post-procedure diagnosis: same Procedure Notes Procedure: 1. FLUORSCOPICALLY GUIDED CONTRAST CONTROLLED INTERLAMINAR EPIDURAL STEROID INJECTION - C6/7 TL LENORE Indications: The patient is referred by for treatment of Cervical HNP with Upper Extremity Paresthesias. Physician: Sukhdev Roldan Total Fluoroscopy time (seconds): 29 Total sedation minutes: 17 Complications: none Procedure in detail & Post-procedure care: FINDINGS Cervical Stenosis due to disc deterioration and nerve root irritation and nerve root irritation DESCRIPTION OF PROCEDURE Fluoroscopically guided, contrast-controlled C6/7 translaminar epidural steroid injection with conscious sedation. Following review of allergy and review of potential side effects and complications, including, but not necessarily limited to, infection, allergic reaction, local tissue breakdown, temporary as well as permanent nerve injury, stroke, paralysis, and possible , the patient indicated that patient understood and agreed to proceed. An informed consent document was signed by the patient, witnessed by a nurse, and placed in the patient's chart. Additionally, other treatment options including modalities, medications, and physical therapy were reviewed with the patient. After review of previous anaesthesic history and IV conscious sedation the patient was deemed safe to proceed with today?s procedure with IV conscious sedation as ASA class II designation. Safety time-out was performed to confirm patient ID, procedure to be performed and site of procedure. IV sedation was accomplished with a combination of 2mg of Versed and 50mcg of Fentanyl administered by the RN after DO order, titrated to patient comfort during the course of the procedure while the patient remained responsive to all verbal commands. In the prone position, following sterile prep and drape of the cervical region, the C6/7 translaminar space was identified fluoroscopically. The skin was anesthetized via a 25-gauge 1.5-inch needle with 1% lidocaine solution. At this point, a 25-gauge, 2.5-inch short bevel spinal needle was atraumatically introduced and advanced under fluoroscopic guidance into epidural space at the C6/7 translaminar space. Depth was confirmed on lateral view. Radiological data, including multiple fluoroscopic views of the cervical spine, reveal a spinal needle at the C6/7 translaminar space. Lateral views then show placement of the needle in the epidural space. Subsequent views show contrast material flowing superiorly and inferiorly in the epidural space. DSA fluoroscopy with live contrast injection, once again, confirmed no vascular or intrathecal uptake. At this point, using loss of resistance technique with saline and air, the epidural space was entered. Following negative aspiration, injection of gwendolyn roximately 1.5 cc of Isovue-200 with live fluoroscopy in the AP view confirmed epidural flow in the epidural space without vascular or intrathecal uptake observed. Subsequently, a test dose of 1 cc of 1% lidocaine solution was injected and patient was observed for two minutes without signs or symptoms of complications, including abdominal pain, shortness of breath, bilateral upper or lower extremity weakness, nausea and vomiting, prior to steroid injection. At this point, 2cc or 20mg of dexamethasone was then injected without incident. The patient tolerated the procedure well without signs or symptoms of complications prior to being transferred to the recovery area for further monitoring, The patient was then transferred to the recovery area where they were observed for an appropriate period of time after the injection. The patient reported a VAS score of 6 prior to the procedure and a post-procedure VAS of 0. POST OP INSTRUCTIONS The patient was provided a Pain Log to continue to record their response to the target-specific procedure prior to follow-up visit with the referring provider. Additionally, specific post-injection care instructions and a contact number to our office were provided if concerns arise regarding possible complications associated with the procedure are suspected.
== END 2024-02-04 10:28 | disposition home or self-care (01) ==
LOC: RAD 08:36
PROVIDERS: Family Provider Physician Assistant; Referring Provider Physical Medicine & Rehabilitation; Visit Provider Physical Medicine & Rehabilitation
DX: M47.812 Spondylosis without myelopathy or radiculopathy, cervical region (principal)
CPT/HCPCS: 64490; 64491; 99152; J2250

== ENCOUNTER → 2024-02-07 13:23 | Outpatient (CLI) | payer MEDICARE, OTHER, SELFPAY ==
--- NOTE | 2024-02-07 13:25 | DI.RAD.S_ITS ---
PROCEDURE: XR KNEE RT 3V INDICATIONS: Fall 2 wks ago. Anterior/medial/tibial knee pain TECHNIQUE: 3 views of the knee were acquired. COMPARISON: None. FINDINGS: Bones: No fractures or dislocations. No suspicious bony lesions. Soft tissues: No joint effusion. No suspicious soft tissue calcifications. IMPRESSION: No acute bony abnormality or significant effusion. Dictated by: Ryan Milton M.D. on 02/07/2024 at 13:44 Approved by: Ryan Milton M.D. on 02/07/2024 at 13:45
== END ==
PROVIDERS: Family Provider Physician Assistant; Referring Provider Physician Assistant Medical; Visit Provider Physician Assistant Medical
DX: M25.561 Pain in right knee (principal)
CPT/HCPCS: 73562

== ENCOUNTER → 2024-04-15 12:07 | Outpatient (CLI) | payer MEDICARE, OTHER, SELFPAY ==
[2024-04-15 12:27] LABS: Hematocrit 36.8 % (36-46); Hemoglobin 12.5 g/dL (12.0-16.0); Mean Corpuscular Hemoglobin 34.1 PG (26-34); Mean Corpuscular Volume 100.2 fL (80-100); Platelet Count 309 X10^3/uL (150-400); Red Blood Cell Count 3.68 X10^6/uL (4.0-5.2); Red Cell Distribution Width 14.9 % (11.6-14.8); White Blood Cell Count 8.7 X10^3/uL (4.5-11.0)
[2024-04-15 12:50] LABS: Blood Urea Nitrogen 18 mg/dL (7-17); Carbon Dioxide 32 mmol/L (22-32); Chloride 102 mmol/L (98-107); Estimated Glomerular Filt Rate 46 mL/min (>60); Glucose 90 mg/dL (80-110); HEMOLYSIS < 15 (0-50); Potassium 3.5 mmol/L (3.4-5.1); Sodium 137 mmol/L (137-145)
== END ==
PROVIDERS: PCP Internal Medicine; Referring Provider Internal Medicine; Visit Provider Internal Medicine
DX: I10 Essential (primary) hypertension (principal); E83.42 Hypomagnesemia
CPT/HCPCS: 36415; 80048; 83735; 85027

== ENCOUNTER → 2024-07-14 14:49 | Outpatient (CLI) | payer MEDICARE, OTHER, SELFPAY ==
[2024-07-14 15:59] LABS: BUN Creatinine Ratio 20.5 (6-22); Blood Urea Nitrogen 25 mg/dL (7-17); Calcium 9.5 mg/dL (8.4-10.2); Carbon Dioxide 29 mmol/L (22-32); Chloride 102 mmol/L (98-107); Estimated Glomerular Filt Rate 45 mL/min (>60); Glucose 90 mg/dL (80-110); HEMOLYSIS < 15 (0-50); Potassium 3.4 mmol/L (3.4-5.1); Sodium 136 mmol/L (137-145)
== END ==
PROVIDERS: PCP Internal Medicine; Referring Provider Internal Medicine; Visit Provider Internal Medicine
DX: R79.89 Other specified abnormal findings of blood chemistry (principal)
CPT/HCPCS: 36415; 80048

== ENCOUNTER → 2024-07-24 13:08 | Outpatient (CLI) | payer MEDICARE, OTHER, SELFPAY ==
--- NOTE | 2024-07-24 13:09 | DI.MRI.S_ITS ---
PROCEDURE: MR KNEE LT WO CON INDICATIONS: EVAL TIBIA PES ANSERINUS TECHNIQUE: Noncontrast sagittal PD fast spin echo and T2 fast spin echo with fat saturation, sagittal 3-D FLASH with fat saturation; coronal T1 spin echo and PD fast spin echo with fat saturation, and axial PD fast spin echo with fat saturation through the knee. COMPARISON: [facility], CR, XR KNEE ARTHRITIC SERIES RT, 06/09/2024, 11:54. [facility], MR, MR KNEE RT WO CON, 07/24/2024, 13:17. FINDINGS: Image quality: Somewhat limited evaluation given patient motion. Menisci: In the medial meniscus, there is horizontal oblique tear of the meniscus body. No extrusion of the medial meniscus body. In the lateral meniscus, there is a small undersurface flap tear of the lateral meniscus body (14:19). Cruciate ligaments: The anterior and posterior cruciate ligaments appear intact. Medial structures: The medial collateral ligament appears intact. The posterior oblique ligament, semimembranosus tendon insertions, oblique popliteal ligament, and meniscocapsular junction appear intact. Visualized portions of the pes anserinus tendons appear normal. No abnormal bursal fluid. Lateral structures: The lateral collateral ligament, long and short heads of the biceps femoris tendon appear intact. The popliteus tendon appears normal; the popliteofibular ligament appears intact. The posterosuperior and anteroinferior popliteomeniscal fascicles appear intact. The arcuate and fabellofibular ligaments appear intact, on either side of the lateral inferior geniculate artery. Iliotibial band appears normal. Anterior structures: The quadriceps and patellar tendons appear intact. Patellar alignment is normal. No femoral trochlear dysplasia or ventral trochlear prominence. No Hoffa's fat pad edema. Marked suprapatellar fat pad edema. Bones and cartilage: There is mild chondral irregularity in the medial patellar facet. Cartilage of the trochlea is grossly well maintained. The cartilage of the medial and lateral compartments are grossly well maintained. No acute fracture. Joint space: Moderate knee effusion. Moderate sized popliteal cyst. Popliteal vasculature is unremarkable. Diffuse subcutaneous edema of the knee. No intra-articular body. IMPRESSION: 1. Tear of the medial and lateral meniscus. 2. Marked suprapatellar fat pad edema, raising concern for patellar maltracking. 3. Mild chondrosis of the patellofemoral compartment. 4. Moderate knee effusion. Moderate sized popliteal cyst. Dictated by: Amaya Zazueta M.D. on 07/24/2024 at 16:06 Approved by: Amaya Zazueta M.D. on 07/24/2024 at 16:18
--- NOTE | 2024-07-24 13:09 | DI.MRI.S_ITS ---
PROCEDURE: MR KNEE RT WO CON INDICATIONS: EVAL TIBIA PES ANSERINUS TECHNIQUE: Noncontrast sagittal PD fast spin echo and T2 fast spin echo with fat saturation, sagittal 3-D FLASH with fat saturation; coronal T1 spin echo and PD fast spin echo with fat saturation, and axial PD fast spin echo with fat saturation through the knee. COMPARISON: [facility], MR, MR KNEE RT WO CON, 06/11/2019, 14:41. FINDINGS: Image quality: Excellent. Menisci: Abnormal signal in the posterior horn extending into the mid body of the medial meniscus suspicious for mildly complex predominantly horizontally oriented tear new since the prior exam. The lateral meniscus is intact. Cruciate ligaments: Mild increased T2 weighted signal of the mid and distal anterior cruciate ligament mild injury/sprain which may be chronic but with intact fibers without full-thickness tear or retraction. Posterior cruciate ligament is normal. Medial structures: Mild increased T2 weighted signal surrounding and within the medial collateral ligament, grade 2 injury. The semimembranosus tendon insertion is intact. Mild increased T2 weighted signal soft tissue edema and/or bursal fluid suggesting mild pes anserine bursitis. Lateral structures: The lateral collateral ligament, long and short heads of the biceps femoris tendon appear intact. Mild signal changes surrounding the proximal popliteus tendon at the myotendinous junction. Iliotibial band appears normal. Anterior structures: Nonspecific subcutaneous edema anterior to the patella and patellar ligament. The quadriceps and patellar tendons appear intact. Patellar alignment is normal. No femoral trochlear dysplasia or ventral trochlear prominence. No edema in the infrapatellar fat pad. Bones and cartilage: Mild diffuse cartilaginous thinning in the patellar cartilage mostly in the medial patellar facet. No focal chondral defect in the medial or lateral compartments. Joint space: [id number] knee joint effusion. Moderate popliteal cyst measures up to 4.5 cm cc by 3 cm AP by 1.5 cm transverse maximal dimensions similar to the prior exam. IMPRESSION: Complex predominantly horizontally oriented tear of the posterior horn into the mid body of the medial meniscus. Medial soft tissue edema within and surrounding the medial collateral ligament grade 2 injury. Suspected mild pes anserine bursitis. Popliteal cyst unchanged. Other findings as above. Dictated by: Clinton Anderson M.D. on 07/24/2024 at 15:56 Approved by: Clinton Anderson M.D. on 07/24/2024 at 16:13
== END ==
PROVIDERS: PCP Internal Medicine; Referring Provider Orthopaedic Surgery; Visit Provider Orthopaedic Surgery
DX: M70.52 Other bursitis of knee, left knee (principal); M70.51 Other bursitis of knee, right knee; S83.231A Complex tear of medial meniscus, current injury, right knee, initial encounter; S83.511A Sprain of anterior cruciate ligament of right knee, initial encounter; S83.282A Other tear of lateral meniscus, current injury, left knee, initial encounter; S83.242A Other tear of medial meniscus, current injury, left knee, initial encounter; M25.462 Effusion, left knee
CPT/HCPCS: 73721

== ENCOUNTER → 2025-02-02 15:54 | Outpatient (CLI) | payer MEDICARE, OTHER, SELFPAY ==
[2025-02-02 16:38] LABS: Hematocrit 35.1 % (36-46); Hemoglobin 11.9 g/dL (12.0-16.0); Mean Corpuscular HGB Conc 34.0 % (30-36); Mean Corpuscular Hemoglobin 34.0 PG (26-34); Mean Corpuscular Volume 99.9 fL (80-100); Platelet Count 259 X10^3/uL (150-400)
[2025-02-02 17:13] LABS: Blood Urea Nitrogen 11 mg/dL (7-17); Calcium 9.0 mg/dL (8.4-10.2); Carbon Dioxide 29 mmol/L (22-32); Chloride 105 mmol/L (98-107); Estimated Glomerular Filt Rate > 60 mL/min (>60); Glucose 87 mg/dL (70-99); HEMOLYSIS < 15 (0-50); Potassium 4.0 mmol/L (3.4-5.1); Sodium 137 mmol/L (137-145)
== END ==
PROVIDERS: PCP Internal Medicine; Referring Provider Internal Medicine; Visit Provider Internal Medicine
DX: N18.32 Chronic kidney disease, stage 3b (principal)
CPT/HCPCS: 36415; 80048; 82310; 83970; 85027

== ENCOUNTER → 2025-02-05 09:08 | Outpatient (CLI) | payer MEDICARE, OTHER, SELFPAY ==
--- NOTE | 2025-02-05 09:10 | DI.US.S_ITS ---
PROCEDURE: US RENAL COMPLETE INDICATIONS: elev creat TECHNIQUE: Real-time scanning was performed of the kidneys and bladder, with image documentation. COMPARISON: None. FINDINGS: Kidneys: Kidneys are normal in size. Right kidney measures 9.7 cm long; left kidney measures 10.5 cm long. Right renal cortical thickness is 1.3 cm; left renal cortical thickness is 1.2 cm. Renal cortical echotexture is normal. No hydronephrosis or nephrolithiasis. No suspicious solid mass lesions. Bladder: Pre-void bladder volume is 119 mL. Post-void residual is 0 mL. Pre- void images demonstrate no intraluminal masses or stones. On pre-void images, neither of the ureteral jets can be seen with color Doppler interrogation. (Of note, ureteral jets may not be detectable in up to 25% of cases due to insufficient differences in specific gravity between ureteral and bladder urine). Miscellaneous: No free pelvic fluid. IMPRESSION: Normal appearing kidneys, without hydronephrosis. No postvoid residual. Dictated by: Aj Heck M.D. on 02/05/2025 at 11:42 Approved by: Aj Heck M.D. on 02/05/2025 at 11:42
== END ==
LOC: US 09:09
PROVIDERS: PCP Internal Medicine; Referring Provider Internal Medicine; Visit Provider Internal Medicine
DX: N18.32 Chronic kidney disease, stage 3b (principal)
CPT/HCPCS: 76770

== ENCOUNTER → 2025-02-17 14:45 | Outpatient (CLI) | payer MEDICARE, OTHER, SELFPAY ==
[2025-02-17 17:29] LABS: Vitamin B12 Reflex MMA if <400 199 pg/mL (239-931)
== END ==
PROVIDERS: PCP Internal Medicine; Referring Provider Internal Medicine; Visit Provider Internal Medicine
DX: E53.8 Deficiency of other specified B group vitamins (principal)
CPT/HCPCS: 36415; 82607; 83921

== ENCOUNTER → 2025-03-10 15:52 | Outpatient (CLI) | payer MEDICARE, OTHER, SELFPAY ==
--- NOTE | 2025-03-10 15:55 | DI.CT.S_ITS ---
PROCEDURE: CT HEAD/BRAIN WO CON INDICATIONS: memory loss TECHNIQUE: Noncontrast 4.5 mm thick angled axial sections acquired from the foramen magnum to the vertex, with coronal and sagittal reformats. For radiation dose reduction, the following was used: automated exposure control, adjustment of mA and/or kV according to patient size. COMPARISON: [facility], CT, CT HEAD/BRAIN WO CON, 11/22/2022, 12:30. FINDINGS: Image quality: Diagnostic. CSF spaces: Basal cisterns are patent. No extra-axial fluid collections. The ventricles are symmetric in size and shape. Brain: No intracranial bleeds or mass effect. There is cerebral volume loss, with resultant ventricular and sulcal prominence. There are periventricular and deep white matter chronic small vessel ischemic changes. Small right basal ganglia lacunar infarct. There is intracranial internal carotid artery atherosclerosis. Skull and face: Calvarium and visualized facial bones appear intact, without suspicious lesions. Sinuses: Visualized sinuses and mastoids are clear. IMPRESSION: No acute intracranial pathology. Age-related global volume loss and chronic microvascular ischemic changes are present. Dictated by: David Tirado M.D. on 03/10/2025 at 16:17 Approved by: David Tirado M.D. on 03/10/2025 at 16:18
== END ==
PROVIDERS: PCP Internal Medicine; Referring Provider Internal Medicine; Visit Provider Internal Medicine
DX: I67.9 Cerebrovascular disease, unspecified (principal); R41.3 Other amnesia; G31.84 Mild cognitive impairment of uncertain or unknown etiology; I65.29 Occlusion and stenosis of unspecified carotid artery
CPT/HCPCS: 70450